=== PATIENT | male | born 1965 | race American Indian/Alaskan Native ===

== ENCOUNTER 2017-04-13 11:51 | Inpatient (IN) | payer MEDICAID, OTHER ==
[2017-04-13] MEDS ORDERED: Sodium Chloride 0.9% 10 ML Syringe FLUSH PRN (12:16)
[2017-04-13] MEDS ORDERED: Sodium Chloride 0.9% 10 ML Syringe FLUSH ONE (12:29)
[2017-04-13] MEDS ORDERED: Iopamidol 612 MG/ML 150 ML Bottle IVPUSH ONE (12:29)
[2017-04-13] MEDS ORDERED: Sodium Chloride 0.9% 1,000 ML IV SCH (12:30)
--- NOTE | 2017-04-13 13:28 | CT ---
CT chest Technique: Multiple axial sections through the chest were obtained. Intravenous contrast was utilized. Comparison: No prior chest CT, previous chest x-ray of 08/17/16. Findings: Increased density is identified within both posterior lung bases, worse on the left side. Findings could certainly represent bibasilar areas of pneumonia. Minimal increased density noted within the upper lungs. Areas of atelectasis are noted within the upper lungs. No pleural effusions are seen. No pericardial thickening is seen. Mediastinum and hilar regions show no adenopathy or mass. No axillary adenopathy is seen. Bone window settings were reviewed which shows mild endplate concavities scattered within the thoracic spine. Previous cervical spine surgery is partially visualized. Impression: 1. Increased density within both lung bases as well as minimal density within the upper lungs. Findings could certainly represent pneumonia. 2. Other findings which are felt to be incidental as described above. Diagnostic code #3 CT abdomen and pelvis Technique: Multiple axial sections were obtained from above the dome of the diaphragm inferiorly through the pubic symphysis. Intravenous contrast was utilized. No oral contrast has been given. Findings: Mild artifact is noted from the patient's arms. Liver shows no discrete abnormality. Gallbladder well-distended most likely representing fasting. Spleen appears without abnormality. Adrenal glands show no nodule. Kidneys show symmetric contrast enhancement without hydronephrosis or mass. Pancreas is within normal limits. Aorta shows no aneurysmal dilatation. No retroperitoneal adenopathy is seen. No mesenteric abnormalities are seen. No pelvic mass or adenopathy is noted. Day catheter is seen within the bladder. Mild increased stool is noted throughout the colon. Appendix is not definitely seen. Bone window settings were reviewed which shows previous surgery around a compression deformity at L1. Impression: 1. Increased stool within the colon. 2. Other incidental findings as noted above. Nothing acute is appreciated within the abdomen or pelvis. Diagnostic code #2
[2017-04-13] MEDS ORDERED: Levofloxacin/Dextrose 5%-Water 750 MG in Premix Bag 1 BAG IV ONE (13:43)
[2017-04-13] MEDS ORDERED: Acetaminophen 325 MG Tab PO ONE (13:52)
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
[2017-04-13] MEDS ORDERED: Acetaminophen 325 MG Tab ONE (14:02)
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
[2017-04-13] MEDS ORDERED: Promethazine 12.5 MG in Sodium Chloride 0.9% 50 ML IV PRN (16:56)
[2017-04-13] MEDS ORDERED: Bisacodyl 10 MG Supp RECTAL PRN (16:56)
[2017-04-13] MEDS ORDERED: Temazepam 15 MG Cap PO PRN (16:56)
[2017-04-13] MEDS ORDERED: LORazepam 2 MG/ML MDV IV PRN (16:56)
[2017-04-13] MEDS ORDERED: Ondansetron 4 MG/2 ML SDV IV PRN (16:56)
[2017-04-13] MEDS ORDERED: HYDROmorphone 0.5 MG/0.5 ML Syringe IVPUSH PRN (16:56)
[2017-04-13] MEDS ORDERED: Metoprolol Tartrate 5 MG/5 ML SDV IVPUSH PRN (16:56)
[2017-04-13] MEDS ORDERED: Magnesium Hydroxide 400 MG/5 ML Susp 30 ML Cup PO PRN ×2 (16:56→17:43)
[2017-04-13] MEDS ORDERED: Polyethylene Glycol 3350 Powder 17 GM Packet PO PRN (16:56)
[2017-04-13] MEDS ORDERED: hydrALAZINE 20 MG/ML SDV IVPUSH PRN (16:56)
[2017-04-13] MEDS ORDERED: Albuterol/Ipratropium 3.0-0.5 MG/3 ML Neb Soln NEB PRN (16:56)
[2017-04-13] MEDS ORDERED: LORazepam 2 MG/ML MDV IVPUSH PRN (16:56)
[2017-04-13] MEDS ORDERED: Docusate Sodium 100 MG Cap PO PRN (16:56)
[2017-04-13] MEDS ORDERED: Acetaminophen 325 MG Tab PO PRN (16:56)
[2017-04-13] MEDS ORDERED: Piperacillin/Tazobactam 4.5 GM in Sodium Chloride 0.9% 100 ML IV ONE (17:15)
[2017-04-13] MEDS ORDERED: Hypromellose 0.5% Ophth Soln 15 ML Bottle EYEBOTH PRN (17:43)
[2017-04-13] MEDS ORDERED: Triamcinolone Acetonide 0.1% Crm 15 GM Tube TOP PRN (17:43)
[2017-04-13] MEDS ORDERED: Diclofenac Sodium 1% Gel 100 GM Tube TOP PRN (17:43)
[2017-04-13] MEDS ORDERED: diphenhydrAMINE 25 MG Cap PO PRN (17:59)
[2017-04-13] MEDS ORDERED: Nitroglycerin 2% Oint 1 GM UD Packet TOP PRN (18:15)
[2017-04-13] MEDS: Lactulose Soln 10 GM/15 ML 30 ML UD Cup PO SCH ×2 (19:21→22:59)
[2017-04-13] MEDS: Saccharomyces Boulardii (Probiotic) 250 MG Cap PO SCH ×2 (19:21→22:26)
[2017-04-13] MEDS: Venlafaxine 75 MG Cap.ER PO SCH (22:25)
[2017-04-13] MEDS: Cholecalciferol (Vitamin D3) 1,000 Unit Tab PO SCH (22:25)
[2017-04-13] MEDS: ClonazePAM 0.5 MG Tab PO SCH (22:25)
[2017-04-13] MEDS: Calcium Polycarbophil 625 MG Tab PO SCH (22:25)
[2017-04-13] MEDS: Ascorbic Acid 500 MG Tab PO SCH (22:25)
[2017-04-13] MEDS: Baclofen 10 MG Tab PO SCH (22:25)
[2017-04-13] MEDS: Sennosides 8.6 MG Tab PO SCH (22:26)
[2017-04-13] MEDS: Primidone 50 MG Tab PO SCH (22:26)
[2017-04-13] MEDS: Calcium Carbonate/Vitamin D3 1500 MG-200 Units Tab PO SCH (22:26)
[2017-04-13] MEDS: Cyclobenzaprine 10 MG Tab PO SCH (22:26)
[2017-04-13] MEDS: Gabapentin 300 MG Cap PO SCH (22:26)
[2017-04-13] MEDS: Acetaminophen/HYDROcodone 325-5 MG Tab PO PRN (22:37)
[2017-04-13] MEDS: Sodium Chloride 0.9% 1,000 ML IV SCH (22:57)
[2017-04-14] MEDS: Lidocaine 2% Jelly 5 ML Tube TOP SCH ×2 (01:10→22:10)
[2017-04-14] MEDS: Piperacillin/Tazobactam 4.5 GM in Sodium Chloride 0.9% 100 ML IV SCH ×3 (01:11→18:50)
[2017-04-14] MEDS: Lactulose Soln 10 GM/15 ML 30 ML UD Cup PO SCH ×3 (05:18→18:50)
[2017-04-14] MEDS: Acetaminophen/HYDROcodone 325-5 MG Tab PO PRN ×3 (05:19→22:06)
[2017-04-14] MEDS: Pantoprazole 40 MG Tab.CR PO SCH (06:09)
[2017-04-14] MEDS ORDERED: fentaNYL 75 MCG/HR Transdermal Patch TRDERM SCH (09:00)
[2017-04-14] MEDS: Sodium Chloride 0.9% 1,000 ML IV SCH ×2 (09:17→17:30)
[2017-04-14] MEDS: Enoxaparin 40 MG/0.4 ML Syringe SUBCUT SCH (09:18)
[2017-04-14] MEDS: Venlafaxine 75 MG Cap.ER PO SCH ×2 (09:20→22:08)
[2017-04-14] MEDS: buPROPion 150 MG Tab.ER PO SCH (09:20)
[2017-04-14] MEDS: Magnesium Oxide 400 MG Tab PO SCH (09:20)
[2017-04-14] MEDS: Baclofen 10 MG Tab PO SCH ×3 (09:20→22:08)
[2017-04-14] MEDS: Calcium Polycarbophil 625 MG Tab PO SCH ×2 (09:20→22:05)
[2017-04-14] MEDS: Ascorbic Acid 500 MG Tab PO SCH ×3 (09:21→22:08)
[2017-04-14] MEDS: Cyclobenzaprine 10 MG Tab PO SCH ×3 (09:21→22:08)
[2017-04-14] MEDS: Sennosides 8.6 MG Tab PO SCH ×2 (09:21→22:05)
[2017-04-14] MEDS: Saccharomyces Boulardii (Probiotic) 250 MG Cap PO SCH ×2 (09:22→22:10)
[2017-04-14] MEDS: Multivitamins,Therapeutic Tab PO SCH (09:22)
[2017-04-14] MEDS: Lidocaine 5% 700 MG Patch TOP SCH (09:22)
[2017-04-14] MEDS: Calcium Carbonate/Vitamin D3 1500 MG-200 Units Tab PO SCH ×2 (09:23→22:05)
[2017-04-14] MEDS: Cholecalciferol (Vitamin D3) 1,000 Unit Tab PO SCH ×2 (09:23→22:08)
[2017-04-14] MEDS: guaiFENesin 600 MG Tab.ER PO SCH ×2 (09:26→22:06)
[2017-04-14] MEDS: Gabapentin 300 MG Cap PO SCH ×3 (09:27→22:08)
[2017-04-14] MEDS: Methenamine Hippurate 1 GM PO SCH ×2 (09:27→22:04)
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
[2017-04-14] MEDS: Levofloxacin/Dextrose 5%-Water 500 MG in Premix Bag 1 BAG IV SCH (12:18)
[2017-04-14] MEDS: Primidone 50 MG Tab PO SCH (22:05)
[2017-04-14] MEDS: ClonazePAM 0.5 MG Tab PO SCH (22:07)
[2017-04-15] MEDS: Sodium Chloride 0.9% 1,000 ML IV SCH ×3 (01:17→21:30)
[2017-04-15] MEDS: Lactulose Soln 10 GM/15 ML 30 ML UD Cup PO SCH ×4 (01:17→17:52)
[2017-04-15] MEDS: Piperacillin/Tazobactam 4.5 GM in Sodium Chloride 0.9% 100 ML IV SCH ×3 (01:17→17:53)
[2017-04-15] MEDS: Acetaminophen/HYDROcodone 325-5 MG Tab PO PRN ×5 (02:26→22:28)
[2017-04-15] MEDS: Pantoprazole 40 MG Tab.CR PO SCH (06:19)
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
[2017-04-15] MEDS: Methenamine Hippurate 1 GM PO SCH ×2 (09:06→21:26)
[2017-04-15] MEDS: Multivitamins,Therapeutic Tab PO SCH (09:15)
[2017-04-15] MEDS: Calcium Polycarbophil 625 MG Tab PO SCH ×2 (09:15→21:21)
[2017-04-15] MEDS: guaiFENesin 600 MG Tab.ER PO SCH ×2 (09:16→21:20)
[2017-04-15] MEDS: Ascorbic Acid 500 MG Tab PO SCH ×3 (09:17→21:21)
[2017-04-15] MEDS: Sennosides 8.6 MG Tab PO SCH ×2 (09:17→21:21)
[2017-04-15] MEDS: Magnesium Oxide 400 MG Tab PO SCH (09:18)
[2017-04-15] MEDS: Calcium Carbonate/Vitamin D3 1500 MG-200 Units Tab PO SCH ×2 (09:18→21:21)
[2017-04-15] MEDS: Cholecalciferol (Vitamin D3) 1,000 Unit Tab PO SCH ×2 (09:18→21:20)
[2017-04-15] MEDS: buPROPion 150 MG Tab.ER PO SCH (09:19)
[2017-04-15] MEDS: Gabapentin 300 MG Cap PO SCH ×3 (09:19→21:21)
[2017-04-15] MEDS: Baclofen 10 MG Tab PO SCH ×3 (09:20→21:21)
[2017-04-15] MEDS: Cyclobenzaprine 10 MG Tab PO SCH ×3 (09:20→21:21)
[2017-04-15] MEDS: Enoxaparin 40 MG/0.4 ML Syringe SUBCUT SCH (09:21)
[2017-04-15] MEDS: Venlafaxine 75 MG Cap.ER PO SCH ×2 (09:21→21:21)
[2017-04-15] MEDS: Saccharomyces Boulardii (Probiotic) 250 MG Cap PO SCH ×2 (09:28→21:20)
[2017-04-15] MEDS: Lidocaine 5% 700 MG Patch TOP SCH (09:39)
--- NOTE | 2017-04-15 10:31 | CR ---
Chest: Frontal view of the chest was obtained. Comparison: Previous CT chest of 04/13/17 and chest x-ray of 08/17/16. Heart size and mediastinum are within normal limits for technique. Areas of increased density noted on chest CT appeared to be improved on current exam. Slight area of atelectasis is noted next to the right minor fissure. Previous cervical spine surgery and right clavicle surgery is noted. Scoliosis is noted within the spine. Impression: 1. Chest x-ray appears improved from prior chest CT. Other incidental findings. Diagnostic code #2
[2017-04-15] MEDS: Levofloxacin/Dextrose 5%-Water 500 MG in Premix Bag 1 BAG IV SCH (14:36)
[2017-04-15] MEDS: ClonazePAM 0.5 MG Tab PO SCH (21:21)
[2017-04-15] MEDS: Primidone 50 MG Tab PO SCH (21:22)
[2017-04-15] MEDS: Lidocaine 2% Jelly 5 ML Tube TOP SCH (21:25)
[2017-04-16] MEDS: Piperacillin/Tazobactam 4.5 GM in Sodium Chloride 0.9% 100 ML IV SCH ×2 (01:31→09:56)
[2017-04-16] MEDS: Lactulose Soln 10 GM/15 ML 30 ML UD Cup PO SCH ×3 (01:31→11:00)
[2017-04-16] MEDS: Acetaminophen/HYDROcodone 325-5 MG Tab PO PRN ×4 (02:46→15:20)
[2017-04-16] MEDS: Pantoprazole 40 MG Tab.CR PO SCH (06:27)
[2017-04-16] MEDS: Sodium Chloride 0.9% 1,000 ML IV SCH (06:54)
[2017-04-16] MEDS: Saccharomyces Boulardii (Probiotic) 250 MG Cap PO SCH (08:58)
[2017-04-16] MEDS: Cyclobenzaprine 10 MG Tab PO SCH ×2 (08:58→15:20)
[2017-04-16] MEDS: Cholecalciferol (Vitamin D3) 1,000 Unit Tab PO SCH (08:58)
[2017-04-16] MEDS: Ascorbic Acid 500 MG Tab PO SCH ×2 (08:58→15:19)
[2017-04-16] MEDS: Sennosides 8.6 MG Tab PO SCH (08:59)
[2017-04-16] MEDS: buPROPion 150 MG Tab.ER PO SCH (08:59)
[2017-04-16] MEDS: guaiFENesin 600 MG Tab.ER PO SCH (08:59)
[2017-04-16] MEDS: Gabapentin 300 MG Cap PO SCH ×2 (08:59→15:20)
[2017-04-16] MEDS: Multivitamins,Therapeutic Tab PO SCH (08:59)
[2017-04-16] MEDS: Baclofen 10 MG Tab PO SCH ×2 (08:59→15:20)
[2017-04-16] MEDS: Calcium Carbonate/Vitamin D3 1500 MG-200 Units Tab PO SCH (09:00)
[2017-04-16] MEDS: Enoxaparin 40 MG/0.4 ML Syringe SUBCUT SCH (09:00)
[2017-04-16] MEDS: Venlafaxine 75 MG Cap.ER PO SCH (09:00)
[2017-04-16] MEDS: Calcium Polycarbophil 625 MG Tab PO SCH (09:00)
[2017-04-16] MEDS: Magnesium Oxide 400 MG Tab PO SCH (09:00)
[2017-04-16] MEDS: Lidocaine 5% 700 MG Patch TOP SCH (09:20)
[2017-04-16] MEDS: Methenamine Hippurate 1 GM PO SCH (10:06)
[2017-04-16 12:11] VITALS: BP 130/89
[2017-04-16] MEDS: Levofloxacin/Dextrose 5%-Water 500 MG in Premix Bag 1 BAG IV SCH (12:53)
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
== END 2017-04-16 15:35 | DRG 871 ==
LOC: JD.ED 11:51 → JD.MS 14:27
PROVIDERS: ADMIT Internal Medicine Cardiovascular Disease; ATTEND Internal Medicine
DX: A41.9 Sepsis, unspecified organism (principal); J18.9 Pneumonia, unspecified organism; N39.0 Urinary tract infection, site not specified; J15.7 Pneumonia due to Mycoplasma pneumoniae; G82.20 Paraplegia, unspecified; T83.511A Infection and inflammatory reaction due to indwelling urethral catheter, initial encounter; N31.9 Neuromuscular dysfunction of bladder, unspecified; N39.498 Other specified urinary incontinence; Z93.6 Other artificial openings of urinary tract status; K59.00 Constipation, unspecified; I25.10 Atherosclerotic heart disease of native coronary artery without angina pectoris; Z86.14 Personal history of Methicillin resistant Staphylococcus aureus infection; Z87.891 Personal history of nicotine dependence; Z87.01 Personal history of pneumonia (recurrent); T14.8 Other injury of unspecified body region; V89.2XXS Person injured in unspecified motor-vehicle accident, traffic, sequela; F32.9 Major depressive disorder, single episode, unspecified; G47.00 Insomnia, unspecified; E66.9 Obesity, unspecified; Z68.36 Body mass index [BMI] 36.0-36.9, adult; G89.29 Other chronic pain; Z79.899 Other long term (current) drug therapy
CPT/HCPCS: 36415; 51702; 71260; 74177; 80053; 81001; 83605; 85025; 86140; 87040 ×2; 87086; 87088 ×3; 87186 ×4; 96361; 96365; 99285; A9270; J1956; J7040; J7050 ×2; Q9967; 71010; 71010-26; 80048; 83036; 83735; 84439; 84443; 86738; 87641; 87899; 94761; 96367; 97110-GO; 97140-GP; 97162-GP; 97167-GO; J1650; J2405; J2543; J7030

== ENCOUNTER 2017-04-27 11:37 | Inpatient (IN) | payer MEDICAID ==
[2017-04-27] MEDS ORDERED: Sodium Chloride 0.9% 10 ML Syringe FLUSH PRN (12:05)
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
[2017-04-27] MEDS: Sodium Chloride 0.9% 1,000 ML IV SCH (13:18)
[2017-04-27] MEDS ORDERED: Levofloxacin/Dextrose 5%-Water 750 MG in Premix Bag 1 BAG IV ONE (13:47)
[2017-04-27] MEDS ORDERED: Ibuprofen 600 MG Tab PO PRN (15:14)
[2017-04-27] MEDS ORDERED: Ondansetron 4 MG/2 ML SDV IV PRN (15:14)
[2017-04-27] MEDS ORDERED: LORazepam 2 MG/ML MDV IV PRN (15:14)
[2017-04-27] MEDS ORDERED: Ondansetron 4 MG Tab.DIS PO PRN (15:14)
--- NOTE | 2017-04-27 15:21 | CR ---
Abdomen: Supine view of the abdomen was obtained. Comparison: No prior abdominal x-ray. Previous surgery is noted at the thoracolumbar junction. Scattered bowel gas is seen which is felt to be within normal limits. Surgical clips are seen within the left upper abdomen. Phleboliths are noted within the pelvis. Impression: 1. Incidental findings. Diagnostic code #2
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
[2017-04-27] MEDS ORDERED: Albuterol 0.083% 2.5 MG/3 ML Neb Soln NEB PRN (16:03)
[2017-04-27] MEDS ORDERED: Acetaminophen 325 MG Tab PO PRN (16:05)
[2017-04-27] MEDS ORDERED: Magnesium Citrate Solution 296 ML Bottle PO ONE (16:08)
[2017-04-27] MEDS ORDERED: Budesonide 0.5 MG/2 ML Neb Susp NEB SCH (16:15)
[2017-04-27] MEDS: Albuterol/Ipratropium 3.0-0.5 MG/3 ML Neb Soln NEB SCH ×2 (17:11→20:13)
[2017-04-27] MEDS: Enoxaparin 40 MG/0.4 ML Syringe SUBCUT SCH (17:30)
[2017-04-27] MEDS: Metoclopramide 10 MG/2 ML SDV IVPUSH SCH (17:30)
[2017-04-27] MEDS: Nicotine 7 MG/24 Hr Patch TRDERM SCH (17:30)
[2017-04-27] MEDS: Meropenem 500 MG in Sodium Chloride 0.9% 100 ML IV SCH (17:31)
[2017-04-27] MEDS ORDERED: fentaNYL 25 MCG/HR Transdermal Patch TRDERM SCH (18:00)
[2017-04-27] MEDS ORDERED: Hypromellose 0.5% Ophth Soln 15 ML Bottle EYEBOTH PRN (18:00)
[2017-04-27] MEDS ORDERED: Lactoperoxi/Gluc Oxid/Pot Thio 42 GM Tube MUCMEM PRN (18:00)
[2017-04-27] MEDS ORDERED: Magnesium Hydroxide 400 MG/5 ML Susp 30 ML Cup PO PRN (18:00)
[2017-04-27] MEDS ORDERED: Diclofenac Sodium 1% Gel 100 GM Tube TOP PRN (18:00)
[2017-04-27] MEDS: Budesonide 0.5 MG/2 ML Neb Susp NEB SCH (20:12)
[2017-04-27] MEDS ORDERED: Saccharomyces Boulardii (Probiotic) 250 MG Cap PO SCH (21:00)
[2017-04-27] MEDS ORDERED: Non-Formulary Medication 1 Each (Gabapentin 400 MG) PO SCH (21:00)
[2017-04-27] MEDS: Saccharomyces Boulardii (Probiotic) 250 MG Cap PO SCH (21:50)
[2017-04-27] MEDS: Calcium Carbonate/Vitamin D3 1500 MG-200 Units Tab PO SCH (21:50)
[2017-04-27] MEDS: Cyclobenzaprine 10 MG Tab PO SCH (21:50)
[2017-04-27] MEDS: Polyethylene Glycol 3350 Powder 17 GM Packet PO SCH (21:51)
[2017-04-27] MEDS: Primidone 50 MG Tab PO SCH (21:51)
[2017-04-27] MEDS: guaiFENesin 600 MG Tab.ER PO SCH (21:51)
[2017-04-27] MEDS: Gabapentin 300 MG Cap PO SCH (21:52)
[2017-04-28] MEDS: Metoclopramide 10 MG/2 ML SDV IVPUSH SCH ×4 (00:33→23:27)
[2017-04-28] MEDS: Meropenem 500 MG in Sodium Chloride 0.9% 100 ML IV SCH ×4 (00:33→17:11)
[2017-04-28] MEDS: Sodium Chloride 0.9% 1,000 ML IV SCH ×3 (00:34→18:19)
[2017-04-28] MEDS ORDERED: Aluminum Hydroxide/Magnesium Hydroxide/Simethicone Susp 30 ML Cup PO PRN (00:54)
[2017-04-28] MEDS: Acetaminophen/oxyCODONE 325-5 MG Tab PO PRN ×5 (01:09→21:13)
[2017-04-28] MEDS: Albuterol/Ipratropium 3.0-0.5 MG/3 ML Neb Soln NEB SCH ×4 (02:16→20:21)
[2017-04-28] MEDS ORDERED: fentaNYL 50 MCG/HR Transdermal Patch TRDERM SCH (07:00)
[2017-04-28] MEDS ORDERED: Diclofenac Sodium 1% Gel 100 GM Tube TOP PRN (07:08)
--- NOTE | 2017-04-28 07:12 | PCM.PN ---
- General Info Date of Service: 04/28/17 Admission Dx/Problem (Free Text): Admission Diagnosis/Problem Admission Diagnosis/Problem Pneumonia Jonathan is seen this morning. Has just finished breakfast, is sitting upright in bed. States that overall he is feeling much better. He did have low grade temps of 99.0 overnight. He is coughing, with increased strength with his cough noted. He still notes occasional SOB sensations, usually after coughing which resolves shortly after- much improved from yesterday. He has not had BM yet and still feels "full". Appetite is returning. He is getting nebs, feels they are very helpful. Functional Status: Reports: Pain Controlled, Tolerating Diet, Urinating ( chronic indwelling cath), Incentive Spirometry. Denies: Ambulating ( quadraplegia), New Symptoms - Review of Systems General: Reports: Fever, Weakness (generalized--improved ) HEENT: Reports: No Symptoms Pulmonary: Reports: Shortness of Breath (mild), Cough (mild/weak cough) Cardiovascular: Reports: No Symptoms Gastrointestinal: Reports: Constipation. Denies: Abdominal Pain, Decreased Appetite, Diarrhea, Nausea, Vomiting Genitourinary: Reports: Other (stokes cath) Musculoskeletal: Reports: Other (quadraplegia) Neurological: Reports: Other (quadraplegia). Denies: Headache - Patient Data Vitals - Most Recent: Last Vital Signs Temp 99.0 F 04/28/17 03:46 Pulse 74 04/28/17 03:46 Resp 16 04/28/17 03:46 BP 107/64 04/28/17 03:46 Pulse Ox 91 L 04/28/17 03:46 Weight - Most Recent: 263 lb 4.8 oz I&O - Last 24 Hours: Intake & Output 04/27/17 04/28/17 04/28/17 22:59 06:59 14:59 Intake Total 700 Output Total 1100 Balance -400 Lab Results Last 24 Hours: Laboratory Results - last 24 hr 04/28/17 04/28/17 Range/Units 03:45 04:21 WBC 7.29 (4.23-9.07) K/mm3 RBC 4.24 L (4.63-6.08) M/mm3 Hgb 11.8 L (13.7-17.5) gm/L Hct 36.5 L (40.1-51.0) % MCV 86.1 (79.0-92.2) fl MCH 27.8 (25.7-32.2) pg MCHC 32.3 (32.2-35.5) g/dl RDW Std Deviation 46.7 H (35.1-43.9) fL Plt Count 263 (163-337) K/mm3 MPV 10.4 (9.4-12.3) fl Neut % (Auto) 68.1 H (34.0-67.9) % Lymph % (Auto) 20.0 L (21.8-53.1) % [place] % (Auto) 9.1 (5.3-12.2) % Eos % (Auto) 2.3 (0.8-7.0) Baso % (Auto) 0.4 (0.1-1.2) % Neut # (Auto) 4.96 (1.78-5.38) K/mm3 Lymph # (Auto) 1.46 (1.32-3.57) K/mm3 [place] # (Auto) 0.66 (0.30-0.82) K/mm3 Eos # (Auto) 0.17 (0.04-0.54) K/mm3 Baso # (Auto) 0.03 (0.01-0.08) K/mm3 Sodium 140 (136-145) mEq/L Potassium 4.0 (3.5-5.1) mEq/L Chloride 102 (98-107) mEq/L Carbon Dioxide 33 H (21-32) mEq/L Anion Gap 9.0 (5-15) BUN 9 (7-18) mg/dL Creatinine 0.6 L (0.7-1.3) mg/dL Est Cr Clr Drug Dosing 169.35 mL/min Estimated GFR (MDRD) > 60 (>60) mL/min BUN/Creatinine Ratio 15.0 (14-18) Glucose 102 (74-106) mg/dL Calcium 8.8 (8.5-10.1) mg/dL Magnesium 1.8 (1.8-2.4) mg/dl C-Reactive Protein 7.2 H* (<1.0) mg/dL Med Orders - Current: Current Medications Acetaminophen (Tylenol) 650 mg PO Q6H PRN PRN Reason: Pain/Fever Al Hydroxide/Mg Hydroxide (Mag-Al Plus) 30 ml PO Q4H PRN PRN Reason: Heartburn Last Admin: 04/28/17 01:09 Dose: 30 ml Albuterol (Proventil Neb Soln) 2.5 mg NEB Q2H PRN PRN Reason: SOB/wheezing Albuterol/Ipratropium (Duoneb 3.0-0.5 Mg/3 Ml) 3 ml NEB Q6HRRT [facility] Last Admin: 04/28/17 02:16 Dose: 3 ml Artificial Tears (Isopto Tears 0.5% Ophth Soln) 0 ml EYEBOTH QID PRN PRN Reason: Dry Eyes Budesonide (Pulmicort) 0.5 mg NEB BID [facility] Last Admin: 04/27/17 20:12 Dose: 0.5 mg Bupropion HCl (Wellbutrin Xl) 150 mg PO DAILY [facility] Calcium Carbonate (Calcium Carbonate/Vitamin D 1500 Mg-200 Unit) 1 tab PO BID [facility] Last Admin: 04/27/17 21:50 Dose: 1 tab Cyclobenzaprine HCl (Flexeril) 10 mg PO TID [facility] Last Admin: 04/27/17 21:50 Dose: 10 mg Diclofenac Sodium (Voltaren 1% Gel) 100 gm TOP TID PRN PRN Reason: Pain Enoxaparin Sodium (Lovenox) 40 mg SUBCUT DAILY [facility] Last Admin: 04/27/17 17:30 Dose: 40 mg Fentanyl (Duragesic) 50 mcg TRDERM Q72H [facility] Gabapentin (Neurontin) 300 mg PO TID [facility] Last Admin: 04/27/17 21:52 Dose: 300 mg Guaifenesin (Mucinex) 1,200 mg PO BID [facility] Last Admin: 04/27/17 21:51 Dose: 1,200 mg Hydromorphone HCl (Dilaudid) 0.5 mg IVPUSH Q2H PRN PRN Reason: Pain (severe 7-10) Sodium Chloride (Normal Saline) 1,000 mls @ 125 mls/hr IV ASDIRECTED [facility] Last Admin: 04/28/17 00:34 Dose: 125 mls/hr Meropenem 500 mg/ Sodium (Chloride) 100 mls @ 200 mls/hr IV Q6H [facility] Last Admin: 04/28/17 05:42 Dose: 200 mls/hr Ibuprofen (Motrin) 600 mg PO Q6H PRN PRN Reason: Pain (moderate 4-6) Lorazepam (Ativan) 1 mg IV Q6H PRN PRN Reason: Nausea/Vomiting Magnesium Hydroxide (Milk Of Magnesia) 30 ml PO DAILY PRN PRN Reason: Constipation Magnesium Sulfate (Pharmacy To Dose - Magnesium Replacement) 1 dose .XX ASDIRECTED [facility] Metoclopramide HCl (Reglan) 10 mg IVPUSH Q8H [facility] Last Admin: 04/28/17 00:33 Dose: 10 mg Miscellaneous Information (Remove Patch) 1 ea TRDERM Q72H [facility] Multivitamins/Minerals (Cerovite Advanced Formula Tablet) 1 tab PO DAILY [facility] Nicotine (Habitrol) 7 mg TRDERM DAILY [facility] Last Admin: 04/27/17 17:30 Dose: 7 mg Saliva Substitute (Combo No.3 [Aquoral]) 1 spray BUCCAL QID PRN PRN Reason: Dryness Ondansetron HCl (Zofran Odt) 4 mg PO Q4H PRN PRN Reason: nausea, able to take PO Ondansetron HCl (Zofran) 4 mg IV Q4H PRN PRN Reason: Nausea/Vomiting Last Admin: 04/27/17 22:00 Dose: 4 mg Oxycodone/Acetaminophen (Percocet 325-5 Mg) 1 tab PO Q4H PRN PRN Reason: Pain (moderate 4-6) Last Admin: 04/28/17 01:09 Dose: 1 tab Pantoprazole Sodium (Protonix) 40 mg PO DAILY [facility] Polyethylene Glycol (Miralax) 17 gm PO BID [facility] Last Admin: 04/27/17 21:51 Dose: 17 gm Potassium Chloride (Pharmacy To Dose - Potassium Replacement) 1 dose .XX ASDIRECTED [facility] Primidone (Mysoline) 25 mg PO BEDTIME [facility] Last Admin: 04/27/17 21:51 Dose: 25 mg Saccharomyces Boulardii (Florastor) 250 mg PO BID [facility] Last Admin: 04/27/17 21:50 Dose: 250 mg Senna/Docusate Sodium (Senna Plus) 2 tab PO BID [facility] Last Admin: 04/27/17 21:58 Dose: 2 tab Sodium Chloride (Saline Flush) 10 ml FLUSH ASDIRECTED PRN PRN Reason: Keep Vein Open Last Admin: 04/27/17 13:18 Dose: 10 ml Venlafaxine HCl (Effexor Xr) 75 mg PO BID [facility] Discontinued Medications Budesonide (Pulmicort) 0.5 mg NEB BIDRT [facility] Fentanyl (Duragesic) 75 mcg TRDERM Q72H [facility] Last Admin: 04/27/17 18:34 Dose: Not Given Levofloxacin/Dextrose 750 mg/ (Premix) 150 mls @ 100 mls/hr IV ONETIME ONE Stop: 04/27/17 15:16 Last Admin: 04/27/17 14:09 Dose: 100 mls/hr Meropenem 500 mg/ Sodium (Chloride) 100 mls @ 200 mls/hr IV Q6H [facility] Magnesium Citrate (Citrate Of Magnesia) 296 ml PO ONETIME ONE Stop: 04/27/17 16:09 Last Admin: 04/27/17 17:30 Dose: 296 ml Non-Formulary Medication (Gabapentin) 400 mg PO TID [facility] Pantoprazole Sodium (Protonix) 40 mg PO DAILY [facility] Saccharomyces Boulardii (Florastor) 250 mg PO BID [facility] - Exam Quality Assessment: Supplemental Oxygen, DVT Prophylaxis General: Alert, Oriented, No Acute Distress, Other (appears much more alert and awake, comfortable today than yesterday) HEENT: Pupils Equal, EOMI, Mucous Membr. Moist/[place] Neck: Supple, No JVD Lungs: Normal Respiratory Effort, Decreased Breath Sounds (mid to lower lobes) Cardiovascular: Regular Rate, Regular Rhythm GI/Abdominal Exam: No: Guarding, Rigid, Rebound (Male) Exam: Deferred Extremities: No Pedal Edema, Normal Capillary Refill, Other (mild contractures of hands bilat but functional - able to feed himself) Peripheral Pulses: 2+: Radial (L), Radial (R), Dorsalis Pedis (L), Dorsalis Pedis (R) Skin: Warm, Dry Neurological: Other (quadraplegic; some use of upper extremities) Psy/Mental Status: Alert, Normal Affect, Normal Mood, Other (affect is less flat today; ;more talkative and interactive today) - Problem List & Annotations (1) Pneumonia involving right lung SNOMED Code(s): 494374075 Code(s): J18.9 - PNEUMONIA, UNSPECIFIED ORGANISM Status: Acute Priority: High Current Visit: Yes Qualifiers: Pneumonia type: due to unspecified organism Lung location: lower lobe of lung Qualified Code(s): J18.1 - Lobar pneumonia, unspecified organism (2) Leukocytosis SNOMED Code(s): 388296818, 729631290 Code(s): D72.829 - ELEVATED WHITE BLOOD CELL COUNT, UNSPECIFIED Status: Acute Priority: High Current Visit: Yes (3) Fever SNOMED Code(s): 750754565 Code(s): R50.9 - FEVER, UNSPECIFIED Status: Acute Priority: High Current Visit: Yes (4) Neurogenic bladder SNOMED Code(s): 192658270 Code(s): N31.9 - NEUROMUSCULAR DYSFUNCTION OF BLADDER, UNSPECIFIED Status: Chronic Priority: Medium Current Visit: Yes (5) Chronic constipation SNOMED Code(s): 776387347 Code(s): K59.09 - OTHER CONSTIPATION Status: Chronic Priority: High Current Visit: Yes (6) Chronic incomplete quadriplegia SNOMED Code(s): 71072210, 747149465 Code(s): G82.50 - QUADRIPLEGIA, UNSPECIFIED Status: Chronic Priority: Medium Current Visit: Yes - Problem List Review Problem List Initiated/Reviewed/Updated: Yes - My Orders Last 24 Hours: My Active Orders 04/27/17 16:01 RT Chest Physiotherapy [RC] Q2HWA RT Incentive Spirometry [RC] Q2HWA Turn, Cough, Deep Breathe [RC] Q2HWA RT Acapella [RESPCARE] Routine 04/27/17 16:02 RT Aerosol Therapy [RC] ASDIRECTED 04/27/17 16:03 Albuterol [Proventil Neb Soln] 2.5 mg NEB Q2H PRN 04/27/17 16:05 Acetaminophen [Tylenol] 650 mg PO Q6H PRN 04/27/17 16:15 Albuterol/Ipratropium [DuoNeb 3.0-0.5 MG/3 ML] 3 ml NEB Q6HRRT Magnesium Rep Pharmacy to Dose [Pharmacy to Dose - Magnesium Replacement] 1 dose .XX ASDIRECTED Metoclopramide [Reglan] 10 mg IVPUSH Q8H Potassium Rep Pharmacy to Dose [Pharmacy to Dose - Potassium Replacement] 1 dose .XX ASDIRECTED 04/27/17 21:00 Budesonide [Pulmicort] 0.5 mg NEB BID Docusate Sodium/Sennosides [Senna Plus] 2 tab PO BID Polyethylene Glycol 3350 [MiraLAX] 17 gm PO BID Saccharomyces Boulardii [Florastor] 250 mg PO BID guaiFENesin [Mucinex] 1,200 mg PO BID 04/28/17 09:00 Pantoprazole [ProTONIX] 40 mg PO DAILY Venlafaxine [Effexor XR] 75 mg PO BID - Plan Plan:: I/P: Recurrent RLL Pnumonia -Risk factors- recent hospitalization for PNA, Quadraplegia/immobility, Resides in Shelter -Merrem IV- florastor -Was recently treated with Levaquin and Zosyn, Augmentin on DC; rec'd 1 dose of Levaquin in ED prior to this admission -IVF -RT for aggressive pulmonary toilet--Question patient's compliance and motivation with IS/FV/C&DB post discharge with last bout of PNA--needs strong education re: pulmonary toilet with regards to quadraplegia and high risk for recurrent PNA -Duonebs QID, pulmicort, FV, IS, percussion -Mucinex -Supplemental oxygen to keep sats >90% -Up to chair TID per nursing -Repeat CXR in 48 hrs -Follow am labs Leukocytosis/fever- 2/2 above--improved this am -Follow am labs -Tylenol PRN for fevers Chronic constipation -Can improve bowel regimen -See orders -2/2 quadraplegia Neurogenic bladder -Stokes cath - cont with good cath cares -UC to assure no recurrent UTI -2/2 quadraplegia Quadraplegia -with spasticity- he is on lots of anticholinergics and narcotics for spasm which is likely contributing to constipation and chronically dry mouth. Will attempt to trim down regimen and see how patient tolerates. -Up to chair TID with nursing if safe Other: DVT/GI prophylax CM/SW for assist with DC planning- likely plan for DC back to [place] when ready /medically stable. See other orders Patient much improved today; looks and feels better; labs improving. Continue with current POC. Plan DC in 2-3 days if continues to do well. At last admission patient was septic; do not suspect sepsis with this admission. He is stable on admission. Patient is Full Code status
--- NOTE | 2017-04-28 07:16 | CR ---
Chest: Frontal view of the chest was obtained. Comparison: Previous chest x-ray of 04/15/17. Heart size has a slight left ventricular configuration. Scarring is noted behind the left side of the heart. Lungs otherwise are clear. Plate and screws are noted within the right clavicle. Several old healed right upper rib fractures are seen. Scoliosis is noted within the spine. Impression: 1. Incidental findings. Nothing acute is appreciated on frontal chest x-ray. Diagnostic code #2
[2017-04-28] MEDS ORDERED: Meropenem 500 MG in Sodium Chloride 0.9% 100 ML IV SCH (08:00)
[2017-04-28] MEDS: Budesonide 0.5 MG/2 ML Neb Susp NEB SCH ×2 (08:21→20:21)
[2017-04-28] MEDS ORDERED: Magnesium Sulfate/Water 2 GM in Premix Bag 1 BAG IV ONE (09:00)
[2017-04-28] MEDS ORDERED: Multivitamin/Iron/Folic Acid Tab PO SCH ×2 (09:00→10:30)
[2017-04-28] MEDS ORDERED: Pantoprazole 40 MG Tab.CR PO SCH (09:00)
[2017-04-28] MEDS: Calcium Carbonate/Vitamin D3 1500 MG-200 Units Tab PO SCH ×2 (09:50→20:37)
[2017-04-28] MEDS: Cyclobenzaprine 10 MG Tab PO SCH ×3 (09:51→20:37)
[2017-04-28] MEDS: guaiFENesin 600 MG Tab.ER PO SCH ×2 (09:51→20:35)
[2017-04-28] MEDS: Polyethylene Glycol 3350 Powder 17 GM Packet PO SCH ×2 (09:51→20:34)
[2017-04-28] MEDS: Pantoprazole 40 MG Tab.CR PO SCH (09:51)
[2017-04-28] MEDS: buPROPion 150 MG Tab.ER PO SCH (09:51)
[2017-04-28] MEDS: Venlafaxine 75 MG Cap.ER PO SCH ×2 (09:51→20:38)
[2017-04-28] MEDS: Gabapentin 300 MG Cap PO SCH ×3 (09:51→20:36)
[2017-04-28] MEDS: Saccharomyces Boulardii (Probiotic) 250 MG Cap PO SCH ×2 (09:51→20:34)
[2017-04-28] MEDS: Enoxaparin 40 MG/0.4 ML Syringe SUBCUT SCH (09:51)
[2017-04-28] MEDS: Nicotine 7 MG/24 Hr Patch TRDERM SCH (09:52)
[2017-04-28] MEDS: Multivitamins,Therapeutic Tab PO SCH (12:08)
[2017-04-28] MEDS: HYDROmorphone 0.5 MG/0.5 ML Syringe IVPUSH PRN ×2 (19:31→23:27)
[2017-04-28] MEDS: Primidone 50 MG Tab PO SCH (20:37)
[2017-04-29] MEDS: Meropenem 500 MG in Sodium Chloride 0.9% 100 ML IV SCH ×4 (00:01→17:57)
[2017-04-29] MEDS: Albuterol/Ipratropium 3.0-0.5 MG/3 ML Neb Soln NEB SCH ×4 (02:14→21:07)
[2017-04-29] MEDS: Sodium Chloride 0.9% 1,000 ML IV SCH (02:36)
[2017-04-29] MEDS: Diazepam 2 MG Tab PO PRN (05:37)
[2017-04-29] MEDS: Acetaminophen/oxyCODONE 325-5 MG Tab PO PRN ×3 (05:37→20:59)
--- NOTE | 2017-04-29 07:27 | PCM.PN ---
- General Info Date of Service: 04/29/17 Admission Dx/Problem (Free Text): Admission Diagnosis/Problem Admission Diagnosis/Problem Pneumonia Jonathan is seen this morning. Nursing is with him finishing am cares. He rec'd fleets enema this am (no BM since ). Overall he is feeling much better other than "full" due to constipation. Breathing is easier, cough is stronger and somewhat productive with brownish thick sputum production. He has been afebrile. RT continues with resp cares/tx. He is weaned from supplemental oxygen now. PT/OT continue to work with him as well. He has been more spastic overnight, did receive valium as nursing called Dr. Saab who gave verbal orders for valium- patient states this was helpful and he was able to rest/sleep after that. Sisters and mother where to see him yesterday. Kids will be here to see him today; he has 6 children, 2 in [place], others in [place], ages 21-10years. - Review of Systems General: Reports: Weakness (improving). Denies: Fever HEENT: Reports: No Symptoms. Denies: Headaches Pulmonary: Reports: Cough (improving; cough is stronger). Denies: Wheezing Cardiovascular: Reports: No Symptoms. Denies: Chest Pain Gastrointestinal: Reports: Constipation (no BM since - fleets enema to be given this morning), Other (feels full/bloated). Denies: Diarrhea, Nausea, Vomiting Genitourinary: Reports: Other (stokes cath). Denies: No Symptoms Musculoskeletal: Reports: Other (quadraplegia) Neurological: Reports: Other (quadraplegia). Denies: Confusion, Headache Psychiatric: Reports: Depression (stable) - Patient Data Vitals - Most Recent: Last Vital Signs Temp 98.4 F 04/29/17 05:51 Pulse 64 04/29/17 05:51 Resp 18 04/29/17 05:51 BP 128/92 H 04/29/17 05:51 Pulse Ox 95 04/29/17 05:51 Weight - Most Recent: 264 lb 9 oz I&O - Last 24 Hours: Intake & Output 04/28/17 04/29/17 04/29/17 22:59 06:59 14:59 Intake Total 3095 2185 Output Total 3200 2800 Balance -105 -615 Lab Results Last 24 Hours: Laboratory Results - last 24 hr 04/29/17 Range/Units 05:50 WBC 5.38 (4.23-9.07) K/mm3 RBC 4.92 (4.63-6.08) M/mm3 Hgb 13.7 (13.7-17.5) gm/L Hct 42.3 (40.1-51.0) % MCV 86.0 (79.0-92.2) fl MCH 27.8 (25.7-32.2) pg MCHC 32.4 (32.2-35.5) g/dl RDW Std Deviation 47.7 H (35.1-43.9) fL Plt Count 183 (163-337) K/mm3 MPV 11.1 (9.4-12.3) fl Neut % (Auto) 65.2 (34.0-67.9) % Lymph % (Auto) 19.1 L (21.8-53.1) % [place] % (Auto) 8.6 (5.3-12.2) % Eos % (Auto) 5.9 (0.8-7.0) Baso % (Auto) 0.6 (0.1-1.2) % Neut # (Auto) 3.51 (1.78-5.38) K/mm3 Lymph # (Auto) 1.03 L (1.32-3.57) K/mm3 [place] # (Auto) 0.46 (0.30-0.82) K/mm3 Eos # (Auto) 0.32 (0.04-0.54) K/mm3 Baso # (Auto) 0.03 (0.01-0.08) K/mm3 Med Orders - Current: Current Medications Acetaminophen (Tylenol) 650 mg PO Q6H PRN PRN Reason: Pain/Fever Al Hydroxide/Mg Hydroxide (Mag-Al Plus) 30 ml PO Q4H PRN PRN Reason: Heartburn Last Admin: 04/28/17 01:09 Dose: 30 ml Albuterol (Proventil Neb Soln) 2.5 mg NEB Q2H PRN PRN Reason: SOB/wheezing Albuterol/Ipratropium (Duoneb 3.0-0.5 Mg/3 Ml) 3 ml NEB Q6HRRT JAIRO Last Admin: 04/29/17 02:14 Dose: 3 ml Artificial Tears (Isopto Tears 0.5% Ophth Soln) 0 ml EYEBOTH QID PRN PRN Reason: Dry Eyes Budesonide (Pulmicort) 0.5 mg NEB BID [facility] Last Admin: 04/28/17 20:21 Dose: 0.5 mg Bupropion HCl (Wellbutrin Xl) 150 mg PO DAILY [facility] Last Admin: 04/28/17 09:51 Dose: 150 mg Calcium Carbonate (Calcium Carbonate/Vitamin D 1500 Mg-200 Unit) 1 tab PO BID [facility] Last Admin: 04/28/17 20:37 Dose: 1 tab Clonazepam (Klonopin) 0.5 mg PO BEDTIME [facility] Cyclobenzaprine HCl (Flexeril) 10 mg PO TID [facility] Last Admin: 04/28/17 20:37 Dose: 10 mg Diazepam (Valium) 2 mg PO QID PRN PRN Reason: Muscle Spasm Last Admin: 04/29/17 05:37 Dose: 2 mg Diclofenac Sodium (Voltaren 1% Gel) 0 gm TOP TID PRN PRN Reason: Pain Enoxaparin Sodium (Lovenox) 40 mg SUBCUT DAILY [facility] Last Admin: 04/28/17 09:51 Dose: 40 mg Fentanyl (Duragesic) 75 mcg TRDERM Q72H [facility] Gabapentin (Neurontin) 300 mg PO TID [facility] Last Admin: 04/28/17 20:36 Dose: 300 mg Glucose Oxid/Lactoperoxid/Muramidas (Biotene Oralbalance Gel) 0 gm MUCMEM QID PRN PRN Reason: Dryness Guaifenesin (Mucinex) 1,200 mg PO BID [facility] Last Admin: 04/28/17 20:35 Dose: 1,200 mg Hydromorphone HCl (Dilaudid) 0.5 mg IVPUSH Q2H PRN PRN Reason: Pain (severe 7-10) Last Admin: 04/28/17 23:27 Dose: 0.5 mg Meropenem 500 mg/ Sodium (Chloride) 100 mls @ 200 mls/hr IV Q6H [facility] Last Admin: 04/29/17 05:38 Dose: 100 mls/hr Ibuprofen (Motrin) 600 mg PO Q6H PRN PRN Reason: Pain (moderate 4-6) Last Admin: 09/27/17 20:36 Dose: 600 mg Lactulose (Cephulac) 20 gm PO BID [facility] Lorazepam (Ativan) 1 mg IV Q6H PRN PRN Reason: Nausea/Vomiting Magnesium Hydroxide (Milk Of Magnesia) 30 ml PO DAILY PRN PRN Reason: Constipation Magnesium Sulfate (Pharmacy To Dose - Magnesium Replacement) 0 dose .XX ASDIRECTED PRN PRN Reason: RX TO WATCH MAG LEVELS Miscellaneous Information (Remove Patch) 0 ea TRDERM Q72H [facility] Multivitamins (Thera) 1 each PO DAILY [facility] Last Admin: 04/28/17 12:08 Dose: 1 each Nicotine (Habitrol) 7 mg TRDERM DAILY [facility] Last Admin: 04/28/17 09:52 Dose: 7 mg Ondansetron HCl (Zofran Odt) 4 mg PO Q4H PRN PRN Reason: nausea, able to take PO Ondansetron HCl (Zofran) 4 mg IV Q4H PRN PRN Reason: Nausea/Vomiting Last Admin: 04/27/17 22:00 Dose: 4 mg Oxycodone/Acetaminophen (Percocet 325-5 Mg) 1 tab PO Q4H PRN PRN Reason: Pain (moderate 4-6) Last Admin: 04/29/17 05:37 Dose: 1 tab Pantoprazole Sodium (Protonix) 40 mg PO DAILY [facility] Last Admin: 04/28/17 09:51 Dose: 40 mg Polyethylene Glycol (Miralax) 17 gm PO BID [facility] Last Admin: 04/28/17 20:34 Dose: 17 gm Potassium Chloride (Pharmacy To Dose - Potassium Replacement) 0 dose .XX ASDIRECTED PRN PRN Reason: RX TO WATCH K LEVELS Primidone (Mysoline) 25 mg PO BEDTIME [facility] Last Admin: 04/28/17 20:37 Dose: 25 mg Saccharomyces Boulardii (Florastor) 250 mg PO BID [facility] Last Admin: 04/28/17 20:34 Dose: 250 mg Senna/Docusate Sodium (Senna Plus) 2 tab PO BID [facility] Last Admin: 04/28/17 20:36 Dose: 2 tab Sodium Chloride (Saline Flush) 10 ml FLUSH ASDIRECTED PRN PRN Reason: Keep Vein Open Last Admin: 04/27/17 13:18 Dose: 10 ml Venlafaxine HCl (Effexor Xr) 75 mg PO BID [facility] Last Admin: 04/28/17 20:38 Dose: 75 mg Discontinued Medications Budesonide (Pulmicort) 0.5 mg NEB BIDRT [facility] Carisoprodol (Soma) 350 mg PO QID PRN PRN Reason: Muscle Spasm Dantrolene Sodium (Dantrium) 25 mg PO DAILY [facility] Dantrolene Sodium (Dantrium) 25 mg PO DAILY [facility] Diazepam (Valium) 2 mg IVPUSH ONETIME ONE Stop: 04/28/17 23:53 Last Admin: 04/29/17 00:02 Dose: 2 mg Diazepam (Valium) 2 mg PO QID PRN PRN Reason: Muscle Spasm Diclofenac Sodium (Voltaren 1% Gel) 100 gm TOP TID PRN PRN Reason: Pain Fentanyl (Duragesic) 75 mcg TRDERM Q72H [facility] Last Admin: 04/27/17 18:34 Dose: Not Given Fentanyl (Duragesic) 50 mcg TRDERM Q72H [facility] Last Admin: 04/28/17 07:51 Dose: Not Given Fentanyl (Duragesic) 50 mcg TRDERM Q72H [facility] Sodium Chloride (Normal Saline) 1,000 mls @ 125 mls/hr IV ASDIRECTED [facility] Last Admin: 04/29/17 02:36 Dose: 125 mls/hr Levofloxacin/Dextrose 750 mg/ (Premix) 150 mls @ 100 mls/hr IV ONETIME ONE Stop: 04/27/17 15:16 Last Admin: 04/27/17 14:09 Dose: 100 mls/hr Meropenem 500 mg/ Sodium (Chloride) 100 mls @ 200 mls/hr IV Q6H [facility] Magnesium Sulfate 2 gm/ Premix 50 mls @ 25 mls/hr IV ONETIME ONE Stop: 04/28/17 10:59 Last Admin: 04/28/17 09:47 Dose: 25 mls/hr Magnesium Citrate (Citrate Of Magnesia) 296 ml PO ONETIME ONE Stop: 04/27/17 16:09 Last Admin: 04/27/17 17:30 Dose: 296 ml Metoclopramide HCl (Reglan) 10 mg IVPUSH Q8H [facility] Last Admin: 04/28/17 23:27 Dose: 10 mg Miscellaneous Information (Remove Patch) 1 ea TRDERM Q72H [facility] Last Admin: 04/28/17 07:51 Dose: Not Given Multivitamins/Minerals (Cerovite Advanced Formula Tablet) 1 tab PO DAILY [facility] Last Admin: 04/28/17 12:08 Dose: Not Given Multivitamins/Minerals (Cerovite Advanced Formula Tablet) 1 tab PO DAILY [facility] Last Admin: 04/28/17 12:08 Dose: Not Given Non-Formulary Medication (Gabapentin) 400 mg PO TID [facility] Pantoprazole Sodium (Protonix) 40 mg PO DAILY [facility] Saccharomyces Boulardii (Florastor) 250 mg PO BID [facility] - Exam Quality Assessment: DVT Prophylaxis. No: Supplemental Oxygen (weaned and off of oxygen this am) General: Alert, Oriented, Cooperative, No Acute Distress HEENT: Pupils Equal, EOMI, Mucous Membr. Moist/[place] Neck: Supple. No: No JVD Lungs: Normal Respiratory Effort, Decreased Breath Sounds (mid to lower lobes). No: Crackles, Rales, Rhonchi, Wheezing Cardiovascular: Regular Rate, Regular Rhythm GI/Abdominal Exam: Distended (full and firm). No: Guarding, Rigid, Rebound, Tender (Male) Exam: No Hernia Extremities: Normal Inspection, No Pedal Edema, Normal Capillary Refill, Other ( mild contracture of hands bilat but is able to feed self; rt hand is more functional than left) Peripheral Pulses: 2+: Radial (L), Radial (R), Dorsalis Pedis (L), Dorsalis Pedis (R) Skin: Warm, Dry, Intact Neurological: Other (quadraplegia with some functioning of upper extremities; rt hand/arm more functional than lt) Psy/Mental Status: Alert, Normal Affect, Normal Mood - Problem List & Annotations (1) Pneumonia involving right lung SNOMED Code(s): 561236444 Code(s): J18.9 - PNEUMONIA, UNSPECIFIED ORGANISM Status: Acute Priority: High Current Visit: Yes Qualifiers: Pneumonia type: due to unspecified organism Lung location: lower lobe of lung Qualified Code(s): J18.1 - Lobar pneumonia, unspecified organism (2) Leukocytosis SNOMED Code(s): 058156332, 344985970 Code(s): D72.829 - ELEVATED WHITE BLOOD CELL COUNT, UNSPECIFIED Status: Acute Priority: High Current Visit: Yes (3) Fever SNOMED Code(s): 107854242 Code(s): R50.9 - FEVER, UNSPECIFIED Status: Acute Priority: High Current Visit: Yes (4) Neurogenic bladder SNOMED Code(s): 724118109 Code(s): N31.9 - NEUROMUSCULAR DYSFUNCTION OF BLADDER, UNSPECIFIED Status: Chronic Priority: Medium Current Visit: Yes (5) Chronic constipation SNOMED Code(s): 733989025 Code(s): K59.09 - OTHER CONSTIPATION Status: Chronic Priority: High Current Visit: Yes (6) Chronic incomplete quadriplegia SNOMED Code(s): 30632606, 715334227 Code(s): G82.50 - QUADRIPLEGIA, UNSPECIFIED Status: Chronic Priority: Medium Current Visit: Yes (7) Chronic pain SNOMED Code(s): 76125614 Code(s): G89.29 - OTHER CHRONIC PAIN Status: Chronic Priority: Medium Current Visit: Yes Qualifiers: Chronic pain type: other chronic pain Qualified Code(s): G89.29 - Other chronic pain (8) Muscle spasticity SNOMED Code(s): 152247245 Code(s): M62.838 - OTHER MUSCLE SPASM Status: Chronic Priority: Medium Current Visit: Yes - Problem List Review Problem List Initiated/Reviewed/Updated: Yes - My Orders Last 24 Hours: My Active Orders 04/28/17 09:00 Pantoprazole [ProTONIX] 40 mg PO DAILY Venlafaxine [Effexor XR] 75 mg PO BID 04/29/17 07:14 Communication Order [RC] ROUTINE 04/29/17 07:15 Lactulose [Cephulac] 20 gm PO BID 04/29/17 07:30 fentaNYL [Duragesic] 75 mcg TRDERM Q72H 04/29/17 21:00 ClonazePAM [KlonoPIN] 0.5 mg PO BEDTIME - Plan Plan:: I/P: Recurrent RLL Pnumonia--improving -Risk factors- recent hospitalization for PNA, Quadraplegia/immobility, Resides in Skilled Nursing -Merrem IV- florastor -Was recently treated with Levaquin and Zosyn, Augmentin on DC; rec'd 1 dose of Levaquin in ED prior to this admission -IVF -RT for aggressive pulmonary toilet--Question patient's compliance and motivation with IS/FV/C&DB post discharge with last bout of PNA--needs strong education re: pulmonary toilet with regards to quadraplegia and high risk for recurrent PNA -Duonebs QID, pulmicort, FV, IS, percussion -Mucinex -Supplemental oxygen to keep sats >90%--has been weaned as of this morning from supplemental oxygen -Up to chair TID per nursing -Repeat CXR to be completed this morning -Follow am labs--improving Leukocytosis/fever- 2/2 above--resolved -Follow am labs--improving -Tylenol PRN for fevers--fevers resolved Chronic constipation -- continues to be an ongoing issue; despite efforts no BM since 04/26 -Can improve bowel regimen; will add lactulose and fleets enema this am; consider treatment with newer targeted medication for opioid induced constipation upon discharge as outpatient/not on formulary here in hospital. -See orders -2/2 quadraplegia Neurogenic bladder -Stokes cath - cont with good cath cares -UC to assure no recurrent UTI--UC is negative -2/2 quadraplegia Quadraplegia -with spasticity- he is on lots of anticholinergics and narcotics for spasm which is likely contributing to constipation and chronically dry mouth. Will attempt to trim down regimen and see how patient tolerates. --Spasms are returning; valium given last night --Pain is increasing, requiring/requesting percocet every 4 hours; will increase fentanyl patch back up to 75mcg Q 72 hrs -Up to chair TID with nursing if safe -Cont PT/OT -Consider Neurology follow up as outpatient to help with medication options for spasticity/pain related to quadraplegia -Discussed case and chronic ongoing issues with constipation and spasticity with PCP, Dr. Galdamez. He has not seen Neurology locally as of yet. Dr. Galdamez is in agreement to Neurology referral as outpatient. He was in Inpatient Rehab in [place] prior to coming to [place] and under Dr. Galdamez's care. Other: DVT/GI prophylax PT/OT CM/SW for assist with DC planning- likely plan for DC back to [place] when ready /medically stable; likely DC back to [place] tomorrow if continues to do well.. See other orders Patient much improved today from PNA standpoint; looks and feels better; labs improving. Continue with current POC. Plan DC in 1-2 days if continues to do well. Patient is Full Code status
[2017-04-29] MEDS ORDERED: fentaNYL 75 MCG/HR Transdermal Patch TRDERM SCH (07:30)
[2017-04-29] MEDS: Polyethylene Glycol 3350 Powder 17 GM Packet PO SCH ×2 (08:35→20:58)
[2017-04-29] MEDS: Lactulose Soln 10 GM/15 ML 30 ML UD Cup PO SCH ×3 (08:43→20:57)
[2017-04-29] MEDS: Venlafaxine 75 MG Cap.ER PO SCH ×2 (08:43→21:00)
[2017-04-29] MEDS: Calcium Carbonate/Vitamin D3 1500 MG-200 Units Tab PO SCH ×2 (08:44→20:58)
[2017-04-29] MEDS: Saccharomyces Boulardii (Probiotic) 250 MG Cap PO SCH ×2 (08:45→20:58)
[2017-04-29] MEDS: Nicotine 7 MG/24 Hr Patch TRDERM SCH (08:45)
[2017-04-29] MEDS: Cyclobenzaprine 10 MG Tab PO SCH (08:45)
[2017-04-29] MEDS: Enoxaparin 40 MG/0.4 ML Syringe SUBCUT SCH (08:46)
[2017-04-29] MEDS: guaiFENesin 600 MG Tab.ER PO SCH ×2 (08:47→21:01)
[2017-04-29] MEDS: Budesonide 0.5 MG/2 ML Neb Susp NEB SCH ×2 (08:48→21:07)
[2017-04-29] MEDS: Gabapentin 300 MG Cap PO SCH ×3 (08:48→21:00)
[2017-04-29] MEDS: Pantoprazole 40 MG Tab.CR PO SCH (08:48)
[2017-04-29] MEDS: Multivitamins,Therapeutic Tab PO SCH (08:49)
[2017-04-29] MEDS: buPROPion 150 MG Tab.ER PO SCH (08:49)
--- NOTE | 2017-04-29 08:51 | CR ---
Chest: Portable view of the chest was obtained. Comparison: Previous chest x-ray of 04/27/17. Heart size is normal. Mild tortuosity of the thoracic aorta is seen. Increased lung markings are seen believed to be chronic and slightly accentuated due to technique. Nothing acute is definitely appreciated. Plate and screws noted within the right clavicle. Previous cervical spine surgery and lumbar spine surgery are noted. Impression: 1. Findings believed to be chronic as described above. Nothing acute is definitely appreciated. Diagnostic code #2
[2017-04-29] MEDS ORDERED: Magnesium Citrate Solution 296 ML Bottle PO ONE (09:13)
[2017-04-29] MEDS ORDERED: Bisacodyl 10 MG Supp RECTAL PRN (09:40)
[2017-04-29] MEDS: Magnesium Oxide 400 MG Tab PO SCH (10:21)
[2017-04-29] MEDS: Baclofen 10 MG Tab PO SCH ×3 (10:21→20:59)
[2017-04-29] MEDS: Calcium Polycarbophil 625 MG Tab PO SCH ×2 (10:21→20:58)
[2017-04-29] MEDS: tiZANidine 4 MG Tab PO SCH ×2 (10:21→21:00)
[2017-04-29] MEDS ORDERED: Meropenem 500 MG SDV ONE (11:30)
[2017-04-29] MEDS ORDERED: fentaNYL 50 MCG/HR Transdermal Patch TRDERM SCH (20:00)
[2017-04-29] MEDS: Cholecalciferol (Vitamin D3) 1,000 Unit Tab PO SCH (20:58)
[2017-04-29] MEDS ORDERED: MELATONIN 2 MG PO SCH (21:00)
[2017-04-29] MEDS ORDERED: BENZOCAINE RECTAL SCH (21:00)
[2017-04-29] MEDS: Primidone 50 MG Tab PO SCH (21:00)
[2017-04-29] MEDS ORDERED: DOCUSATE SODIUM RECTAL SCH (21:00)
[2017-04-29] MEDS ORDERED: ClonazePAM 0.5 MG Tab PO SCH (21:00)
[2017-04-29] MEDS ORDERED: Diazepam 2 MG Tab PO PRN (23:54)
[2017-04-30] MEDS: Meropenem 500 MG in Sodium Chloride 0.9% 100 ML IV SCH ×2 (01:17→06:36)
[2017-04-30] MEDS: Acetaminophen/oxyCODONE 325-5 MG Tab PO PRN ×3 (01:55→12:23)
[2017-04-30] MEDS: Diazepam 2 MG Tab PO PRN (01:56)
[2017-04-30] MEDS: Albuterol/Ipratropium 3.0-0.5 MG/3 ML Neb Soln NEB SCH ×2 (03:37→08:38)
[2017-04-30 07:42] VITALS: BP 130/93
[2017-04-30] MEDS: Saccharomyces Boulardii (Probiotic) 250 MG Cap PO SCH (08:11)
[2017-04-30] MEDS: Multivitamins,Therapeutic Tab PO SCH (08:11)
[2017-04-30] MEDS: Nicotine 7 MG/24 Hr Patch TRDERM SCH (08:11)
[2017-04-30] MEDS: Calcium Carbonate/Vitamin D3 1500 MG-200 Units Tab PO SCH (08:11)
[2017-04-30] MEDS: guaiFENesin 600 MG Tab.ER PO SCH (08:12)
[2017-04-30] MEDS: Baclofen 10 MG Tab PO SCH (08:13)
[2017-04-30] MEDS: Gabapentin 300 MG Cap PO SCH (08:13)
[2017-04-30] MEDS: Cholecalciferol (Vitamin D3) 1,000 Unit Tab PO SCH (08:13)
[2017-04-30] MEDS: buPROPion 150 MG Tab.ER PO SCH (08:13)
[2017-04-30] MEDS: Magnesium Oxide 400 MG Tab PO SCH (08:13)
[2017-04-30] MEDS: Calcium Polycarbophil 625 MG Tab PO SCH (08:14)
[2017-04-30] MEDS: Venlafaxine 75 MG Cap.ER PO SCH (08:14)
[2017-04-30] MEDS: tiZANidine 4 MG Tab PO SCH (08:16)
[2017-04-30] MEDS: Pantoprazole 40 MG Tab.CR PO SCH (08:16)
[2017-04-30] MEDS: Enoxaparin 40 MG/0.4 ML Syringe SUBCUT SCH (08:16)
[2017-04-30] MEDS: Lactulose Soln 10 GM/15 ML 30 ML UD Cup PO SCH (08:16)
[2017-04-30] MEDS: Polyethylene Glycol 3350 Powder 17 GM Packet PO SCH ×2 (08:17→08:23)
[2017-04-30] MEDS: Budesonide 0.5 MG/2 ML Neb Susp NEB SCH (08:38)
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
== END 2017-04-30 12:36 | DRG 193 ==
LOC: JD.ED 11:37 → JD.MS 15:14 → UNDOADMIN 15:26 → JD.MS 15:26
PROVIDERS: ADMIT Internal Medicine; ATTEND Internal Medicine
DX: J15.7 Pneumonia due to Mycoplasma pneumoniae (principal); J18.9 Pneumonia, unspecified organism; I25.9 Chronic ischemic heart disease, unspecified; G82.50 Quadriplegia, unspecified; D72.829 Elevated white blood cell count, unspecified; R32 Unspecified urinary incontinence; N31.9 Neuromuscular dysfunction of bladder, unspecified; K59.09 Other constipation; Z93.6 Other artificial openings of urinary tract status; S14.109S Unspecified injury at unspecified level of cervical spinal cord, sequela; M62.838 Other muscle spasm; S14.159S Other incomplete lesion at unspecified level of cervical spinal cord, sequela; V89.2XXS Person injured in unspecified motor-vehicle accident, traffic, sequela; H04.129 Dry eye syndrome of unspecified lacrimal gland; F32.9 Major depressive disorder, single episode, unspecified; F41.9 Anxiety disorder, unspecified; G47.00 Insomnia, unspecified; Z87.891 Personal history of nicotine dependence; Z79.899 Other long term (current) drug therapy
CPT/HCPCS: 36415; 71010; 74000; 80053; 81001; 83605; 85025; 86140; 87040 ×2; 87086; 93005; 96361; 96365; 96366; 99285; J1956; J7040; J7050; 80048; 83735; 94640-76; 94664; 94667; 94668; 94760; 94761; 97110-GO; 97110-GP; 97161-GP; 97167-GO; 97530-GP; 99284; A9270-GY; J1170; J1650; J2185; J2405; J2765; J3360; J3475; J7030

== ENCOUNTER 2018-04-22 19:56 | Emergency (ER) | payer MEDICAID ==
[2018-04-22 20:04] VITALS: BP 139/110
[2018-04-22] MEDS ORDERED: HYDROmorphone 0.5 MG/0.5 ML SYRINGE IVPUSH ONE (20:21)
[2018-04-22] MEDS ORDERED: Sodium Chloride 0.9% 1,000 ML IV SCH (20:30)
--- NOTE | 2018-04-22 20:42 | EDM.PDOC ---
ED HPI GENERAL MEDICAL PROBLEM - General Chief Complaint: Chest Pain Stated Complaint: [facility] Time Seen by Provider: 04/22/18 20:15 Source of Information: Reports: Patient, EMS History Limitations: Reports: No Limitations - History of Present Illness INITIAL COMMENTS - FREE TEXT/NARRATIVE: Patient is a 53-year-old male with a history of incomplete quadriplegia, UTIs, neurogenic bladder, muscle spasticity, opiod dependence, and ogilvies syndrome. Patient was at the [place] [facility] eating when he developed spasming pain between his shoulders. Pain localizes with no radiation down his abdomen into his legs. Patient has a previous history of pain as such. Usually only last for short period of time and then resolves. EMS staff states the patient was diaphoretic with O2 sats in the 80s. Patient was placed on O2 and is currently in the 95% on 2 L/m of O2 via nasal cannula. Patient's has a fentanyl patch in place. In addition patients abdomen is quite distended. He has a history of ogilvies. Patient denies any abdominal pain currently. States he receives a rectal tube every day to decrease any gas at forming. He had a bowel movement today with no blood present. Current findings are normal per patient. Patient denies history of aortic aneurysm, dissection, fever chills, shortness of breath , cough, chest pain, nausea/vomiting, abdominal pain, or any additional complaints. Patient states his appetite has been good. Posterior Back Pain Score (Numeric/FACES): 5 - Related Data Allergies Allergy/AdvReac Type Severity Reaction Status Date / Time No Known Allergies Allergy Verified 04/22/18 20:04 Home Meds: Home Meds Bisacodyl 10 mg RC DAILY PRN 08/17/16 [History] Cholecalciferol (Vitamin D3) [Vitamin D3] 2,000 unit PO DAILY 08/17/16 [History] Pantoprazole [ProTONIX] 20 mg PO DAILY 08/17/16 [History] Venlafaxine [Effexor XR] 75 mg PO BID 08/17/16 [History] Ascorbate Calcium [Vitamin C] 500 mg PO TID 04/13/17 [History] Calcium Polycarbophil [Fiber Tabs] 625 mg PO BID 04/13/17 [History] Lidocaine 5% [Lidoderm 5%] 700 mg TOP BID 04/13/17 [History] Magnesium 500 mg PO DAILY 04/13/17 [History] Methenamine Hippurate 1 gm PO BID 04/13/17 [History] Primidone 50 mg PO BEDTIME 04/13/17 [History] Triamcinolone Acetonide [Triamcinolone Acetonide 0.1% Crm] 1 gm TOP BID PRN 07/18 [History] buPROPion [Wellbutrin XL] 150 mg PO DAILY 04/13/17 [History] Gabapentin [Neurontin] 600 mg PO TID #0 tab 04/16/17 [Rx] Lidocaine 2% [Xylocaine 2% Jelly] 5 ml TOP BEDTIME #0 04/16/17 [Rx] Melatonin 2 mg PO BEDTIME #0 04/16/17 [Rx] Magnesium Citrate 300 ml PO ASDIRECTED PRN 04/28/17 [History] Budesonide [Pulmicort] 0.5 mg NEB BID #60 neb 04/30/17 [Rx] Lactulose [Cephulac] 20 gm PO BID #1 bottle 04/30/17 [Rx] Na Phos,M-B/Na Phos,DI-B [Fleet Enema] 266 ml RC DAILY PRN #7 bottle 04/30/17 [ Rx] Hydrocodone/Acetaminophen [Hydrocodon-Acetaminophn 10-325] 1 tab PO BID [History] tiZANidine [Zanaflex] 6 mg PO TID 03/04/18 [History] Baclofen 30 mg PO TID 03/05/18 [History] Multivitamin/Iron/Folic Acid [One Daily Multivitamin-Iron Tb] 1 tab PO DAILY 11/17 [History] Polyethylene Glycol 3350 [Laxaclear] 17 gm PO BID 03/05/18 [History] guaiFENesin [Mucinex] 1,200 mg PO BID 03/05/18 [History] Bisacodyl [Dulcolax] 1 supp RECTAL DAILY PRN 04/22/18 [History] Calcium Carbonate/Vitamin D3 [Calcium 600-Vit D3 800 Caplet] 1 tab PO DAILY [History] Ipratropium/Albuterol Sulfate [Iprat-Albut 0.5-3(2.5) mg/3 ml] 1 ampule INH Q6H 04/22/18 [History] Lubiprostone [Amitiza] 24 mcg PO BID 04/22/18 [History] Sennosides/Docusate Sodium [Senna-S] 2 tab PO BID 04/22/18 [History] Simethicone 80 mg PO TID 04/22/18 [History] Vit A,C & E/Lutein/Minerals [Healthy Eyes] 1 tab PO DAILY 04/22/18 [History] fentaNYL [Duragesic] 100 mcg TRDERM ASDIRECTED 04/22/18 [History] Past Medical History HEENT History: Reports: Other (See Below) Other HEENT History: Chronic dry eye Cardiovascular History: Reports: Other (See Below) Other Cardiovascular History: chronic ischemic heart disease Respiratory History: Reports: Pneumonia, Recurrent Gastrointestinal History: Reports: Other (See Below) Other Gastrointestinal History: hernia x2 Genitourinary History: Reports: Urinary Incontinence, Other (See Below) Other Genitourinary History: Indwelling cath, MRSA urine Musculoskeletal History: Reports: Other (See Below) Other Musculoskeletal History: quadripledgia Neurological History: Reports: Other (See Below) Other Neuro History: paraglegic Psychiatric History: Reports: Depression, Other (See Below) Other Psychiatric History: insomnia Endocrine/Metabolic History: Reports: Obesity/BMI 30+ - Infectious Disease History Infectious Disease History: Reports: MRSA - Past Surgical History Head Surgeries/Procedures: Reports: None HEENT Surgical History: Reports: Tonsillectomy Cardiovascular Surgical History: Reports: None Respiratory Surgical History: Reports: None GI Surgical History: Reports: Appendectomy, Hernia, Abdominal Male Surgical History: Reports: None Endocrine Surgical History: Reports: None Neurological Surgical History: Reports: C-Spine, Lumbar Spine Musculoskeletal Surgical History: Reports: None Dermatological Surgical History: Reports: None Social & Family History - Family History Family Medical History: Noncontributory - Tobacco Use Smoking Status *Q: Former Smoker Used Tobacco, but Quit: Yes Month/Year Tobacco Last Used: 05/2016 - Caffeine Use Caffeine Use: Reports: Coffee Other Caffeine Use: 2-4 cups of coffee every day and occassional soda - Recreational Drug Use Recreational Drug Use: No - Living Situation & Occupation Living situation: Reports: , with Family Occupation: Disabled ED ROS GENERAL - Review of Systems Review Of Systems: ROS reveals no pertinent complaints other than HPI. ED EXAM, GENERAL - Physical Exam Exam: See Below Exam Limited By: No Limitations General Appearance: Alert, WD/WN, Mild Distress Eye Exam: Bilateral Eye: Normal Inspection Ears: Hearing Grossly Normal Nose: Normal Inspection Throat/Mouth: Normal Inspection, Normal Voice, No Airway Compromise Neck: Normal Inspection, Supple, Full Range of Motion Respiratory/Chest: No Respiratory Distress, Lungs Clear, Normal Breath Sounds, No Accessory Muscle Use, Chest Non-Tender Cardiovascular: Normal Peripheral Pulses, No Murmur (Obvious), Tachycardia Peripheral Pulses: 1+: Posterior Tibial (L), Posterior Tibial (R), 2+: Radial (L ), Radial (R) GI/Abdominal: Distended, Rigid, Abnormal Bowel Sounds (Hyperactive), Other ( Large surgical incision to the abdomen from previous surgeries. ). No: Guarding , Rebound, Tender Back Exam: Normal Inspection. No: Decreased Range of Motion, Muscle Spasm, Paraspinal Tenderness, Vertebral Tenderness Extremities: No Pedal Edema, Other (History contract it with limited range of motion to the arms. Unable to move his lower extremities. No tenderness noted with palpation of the posterior aspect of his lower legs.). No: Redness Neurological: Alert, Oriented, CN II-XII Intact, Normal Cognition Psychiatric: Normal Affect, Normal Mood Skin Exam: Warm, Intact, Normal Color, No Rash, Diaphoretic Course - Vital Signs Last Recorded V/S: Last Vital Signs Temp 98.0 F 04/22/18 20:00 Pulse 113 H 04/22/18 20:00 Resp 16 04/22/18 20:00 BP 139/110 H 04/22/18 20:00 Pulse Ox 93 L 04/22/18 20:00 - Orders/Labs/Meds Labs: Laboratory Tests 04/22/18 04/22/18 Range/Units 20:53 20:53 WBC 9.96 H (4.23-9.07) K/mm3 RBC 5.22 (4.63-6.08) M/mm3 Hgb 14.5 (13.7-17.5) gm/L Hct 45.3 (40.1-51.0) % MCV 86.8 (79.0-92.2) fl MCH 27.8 (25.7-32.2) pg MCHC 32.0 L (32.2-35.5) g/dl RDW Std Deviation 46.8 H (35.1-43.9) fL Plt Count 232 (163-337) K/mm3 MPV 10.3 (9.4-12.3) fl Neutrophils % (Manual) 78 H (40-60) % Band Neutrophils % 0 (0-10) % Lymphocytes % (Manual) 18 L (20-40) % Atypical Lymphs % 0 % Monocytes % (Manual) 2 (2-10) % Eosinophils % (Manual) 1 (0.8-7.0) % Basophils % (Manual) 1 (0.2-1.2) Platelet Estimate Adequate Plt Morphology Comment Normal RBC Morph Comment Normal Sodium 139 (136-145) mEq/L Potassium 4.3 (3.5-5.1) mEq/L Chloride 103 (98-107) mEq/L Carbon Dioxide 24 (21-32) mEq/L Anion Gap 16.3 H (5-15) BUN 8 (7-18) mg/dL Creatinine 1.2 (0.7-1.3) mg/dL Est Cr Clr Drug Dosing 83.72 mL/min Estimated GFR (MDRD) > 60 (>60) mL/min BUN/Creatinine Ratio 6.7 L (14-18) Glucose 118 H (74-106) mg/dL Calcium 9.3 (8.5-10.1) mg/dL Total Bilirubin 0.3 (0.2-1.0) mg/dL AST 29 (15-37) U/L ALT 31 (16-63) U/L Alkaline Phosphatase 88 (46-116) U/L Troponin I < 0.017 (0.00-0.056) ng/mL C-Reactive Protein 1.4 H* (<1.0) mg/dL Total Protein 8.4 H (6.4-8.2) g/dl Albumin 4.0 (3.4-5.0) g/dl Globulin 4.4 gm/dL Albumin/Globulin Ratio 0.9 L (1-2) Meds: Medications Discontinued Medications Generic Name Dose Route Start Last Admin Trade Name Freq PRN Reason Stop Dose Admin Hydromorphone HCl 0.5 mg 04/22/18 20:21 04/22/18 20:40 Dilaudid IVPUSH 04/22/18 20:22 0.5 mg ONETIME ONE Administration Sodium Chloride 1,000 mls @ 150 mls/hr 04/22/18 20:30 04/22/18 20:40 Normal Saline IV 150 mls/hr ASDIRECTED [facility] Administration - Re-Assessments/Exams Free Text/Narrative Re-Assessment/Exam: IV established with Dilaudid 0.5 mg IVP and IV fluids. Initial labs include: CBC, chem 14, CRP, troponin, UA, EKG, KUB, and chest x- ray one view. Cannot get accurate blood pressure readings on the left side. Left arm is spasming. Right arm indicated blood pressure of 148/100. Initial blood pressure with admission on the left arm was 139/110. Pain to the mid thoracic region between the scapulas resolved with sitting up. 04/22/18 21:12 Chest and abdomen reviewed. Chest cavity is compressed about 50% due to increased air within the colon concerning for obstruction. No widened mediastinum. Discussed with Dr. Toth. He has reviewed the images and recommends to have Dr. Triplett review xray. I did speak with Dr. Triplett. Unsure at this point what he will do for the patient. He will come in and assess patient. Labs reviewed: CBC was essentially normal. Chemistry panel did not elicit any concerning findings. Current 1.2. Troponin less than 0.017. CRP 1.4. 2140 Dr. Triplett has reviewed the xray of the chest and abdomen. Patient does not require surgery at this point. No obvious free air present. If perforated you would suspect decompression of the colon. If admitted this would require medical management. Suggested rectal tube if able. Does not suggest CT of the chest and abdomen with current findings. Further imaging has been cancelled. Per patient he usually gets a rectal tube in the evening for a few hrs. Initially ordered d-dimer due to O2 sats are 88% on room air with hr 105. This was cancelled patients O2s trended upward to 90-91% on room air. HR trended downward to 96. DDimer was cancelled. Per patient he has some feeling to his lower legs and denies any pain and or increased swelling. He has no history of DVT/PE. 04/22/18 22:[address] Vivas general surgeon on-call at [facility]. At this point does not offer any additional suggestions for treatment. Believes the rectal tube placed for a few hrs should decompress his colon. NG tube will only make him miserable so does not suggest at this time. Does not believe a total colectomy is required at this point. This can be discussed on elective basis. If unable to decompress a colonoscopy may be of benefit. I have discussed all options with family and patient. I suggested staying here in the E.D. for a few hrs to allow the rectal rectal tube to decompress his colon. If unsuccessful in contact general surgeon building components designer for possible colonoscopy. Patient refuses to stay. Wishes to go back to the [place] [facility]. States since discharge from the hospital he has had multiple episodes of distended abdomen as such with relief via rectal tube. He is not concerned nor has any other complaints. Discharge instructions as documented. The patient remained hemodynamically stable while under my care in the E.D. I discussed the concerning symptoms for which to returnto the E.D. with the patient/family. The patient/family verbalized understanding. All questions were answered. 1100 Patients three daughters are present. I discussed findings with them. All questions were answered. I offered again to have patient stay for a few hrs to ensure rectal tube works and abdomen distention improves. Patient states he feels completely normal and wishes to be discharged home. Departure - Departure Time of Disposition: 22:42 Disposition: Home, Self-Care 01 Condition: Good Clinical Impression: Abdominal distension (gaseous), Ileus, Collin's syndrome, Spasm of thoracic back muscle - Discharge Information Instructions: Muscle Cramps and Spasms, [id number], Ileus Referrals: PCP,Unknown [Ordering Only Provider] - Forms: ED Department Discharge Additional Instructions: Suggest nothing by mouth until distention of abdomen improves with rectal tube placement. Suggest keeping the tube in place for the next few hours. If symptoms are not relieved with the rectal tube placement and/or you develop any nausea/vomiting, fever, pain, bloody stool, or any additional complaints please return back to the ED for further evaluation. May follow-up with her PCP to discuss referral to general surgery to discuss total colectomy.
--- NOTE | 2018-04-25 07:15 | CR ---
Abdomen: Supine view of the abdomen was obtained. Comparison: Prior abdominal x-ray of 03/07/18. Diffuse gaseous dilatation is seen throughout the colon having the appearance of a colonic ileus. Previous lumbar spine surgery is noted. Calcifications are seen within the pelvis most likely due to phleboliths. Impression: 1. Gaseous dilatation throughout the colon most likely representing colonic ileus. Diagnostic code #3
--- NOTE | 2018-04-25 07:15 | CR ---
Chest: Portable view of the chest was obtained. Comparison: Previous chest x-ray of 03/05/18. Poor inspiratory study is seen. Lungs are grossly clear. Heart size and mediastinum are within normal limits for portable technique. Plate and screws affix an old right clavicle fracture. Several old healed right-sided rib fractures are noted. Previous lumbar spine surgery is noted. Previous cervical spine surgery is noted. Mild gaseous dilatation of colon is seen most likely representing ileus. Impression: 1. Multiple findings as noted above. Nothing acute is seen. Diagnostic code #2
== END 2018-04-23 00:35 | disposition home or self-care (01) ==
LOC: JD.ED 19:56
DX: K56.7 Ileus, unspecified (principal); M62.830 Muscle spasm of back; E66.9 Obesity, unspecified; Z79.899 Other long term (current) drug therapy; Z87.891 Personal history of nicotine dependence
CPT/HCPCS: 36415; 71045; 74018; 80053; 84484; 85007; 85027; 86140; 93005; 96361; 96374; 99285; J1170; J7040; 99284

== ENCOUNTER 2018-11-02 07:12 | Inpatient (IN) | payer MEDICAID, MEDICARE ==
[2018-11-02] MEDS ORDERED: Ibuprofen 600 MG Tab PO ONE (07:58)
[2018-11-02] MEDS ORDERED: Levofloxacin/Dextrose 5%-Water 750 MG in Premix Bag 1 BAG IV ONE (07:58)
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
[2018-11-02] MEDS: Dextrose 5%-0.9% NaCl 1,000 ML IV SCH ×3 (08:30→22:28)
--- NOTE | 2018-11-02 08:45 | CR ---
Chest: Frontal view of the chest is obtained. Comparison: Prior chest x-ray of 04/22/18. Atelectasis is noted within the right midlung. There may be a minimal amount of fluid within the minor fissure on the right side as well. Mild perihilar interstitial change is seen on the left side. No alveolar type densities are seen. Heart size and mediastinum are normal. Previous cervical spine surgery and lumbar spine surgery is noted. Plate and screws are noted within the right clavicle. Impression: 1. Right midlung atelectasis. Questionable small amount of fluid within the right minor fissure. 2. Mild left-sided perihilar bronchitis is suspected. No pneumonia is identified at this time. 3. Other incidental findings. Diagnostic code #3
[2018-11-02] MEDS ORDERED: Bisacodyl 5 MG Tab PO PRN (16:34)
[2018-11-02] MEDS ORDERED: Albuterol 0.083% 2.5 MG/3 ML Neb Soln NEB PRN (16:34)
[2018-11-02] MEDS ORDERED: Ondansetron 4 MG Tab.DIS PO PRN (16:34)
[2018-11-02] MEDS ORDERED: Magnesium Hydroxide 400 MG/5 ML Susp 30 ML Cup PO PRN (16:34)
[2018-11-02] MEDS ORDERED: Polyethylene Glycol 3350 Powder 17 GM Packet PO PRN (16:34)
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
[2018-11-02] MEDS ORDERED: Vancomycin 1500 MG in Sodium Chloride 0.9% 500 ML IV SCH ×3 (17:00)
[2018-11-02] MEDS ORDERED: Magnesium Citrate Solution 296 ML Bottle PO PRN (17:10)
[2018-11-02] MEDS ORDERED: Bisacodyl 10 MG Supp RECTAL PRN (17:10)
[2018-11-02] MEDS ORDERED: Lidocaine 2% Jelly 5 ML Tube TOP PRN (17:10)
[2018-11-02] MEDS: Cefepime 2 GM in Premix Bag 1 BAG IV SCH (17:23)
[2018-11-02] MEDS: Vancomycin 1500 MG in Sodium Chloride 0.9% 500 ML IV SCH ×3 (17:55)
[2018-11-02] MEDS: Budesonide 0.5 MG/2 ML Neb Susp NEB SCH (20:07)
[2018-11-02] MEDS: Albuterol/Ipratropium 3.0-0.5 MG/3 ML Neb Soln INH SCH (20:07)
[2018-11-02] MEDS: Simethicone 80 MG Tab.Chew PO SCH (20:59)
[2018-11-02] MEDS: Polyethylene Glycol 3350 Powder 17 GM Packet PO SCH (20:59)
[2018-11-02] MEDS: Lactulose Soln 10 GM/15 ML 30 ML UD Cup PO SCH (20:59)
[2018-11-02] MEDS: Calcium Polycarbophil 625 MG Tab PO SCH (21:00)
[2018-11-02] MEDS: Gabapentin 600 MG Tab PO SCH (21:00)
[2018-11-02] MEDS: Baclofen 10 MG Tab PO SCH (21:00)
[2018-11-02] MEDS ORDERED: Lidocaine 5% 700 MG Patch TOP SCH (21:00)
[2018-11-02] MEDS: Primidone 50 MG Tab PO SCH (21:01)
[2018-11-02] MEDS: Acetaminophen/HYDROcodone 325-10 MG Tab PO SCH (21:01)
[2018-11-02] MEDS: Venlafaxine 75 MG Cap.ER PO SCH (21:02)
[2018-11-02] MEDS: guaiFENesin 600 MG Tab.ER PO SCH (21:02)
[2018-11-02] MEDS: tiZANidine 4 MG Tab PO SCH (21:03)
[2018-11-02] MEDS ORDERED: Acetaminophen 325 MG Tab PO PRN (21:09)
[2018-11-02] MEDS: Acetaminophen 325 MG Tab PO PRN (21:57)
[2018-11-02] MEDS: Lubiprostone 24 MCG Cap PO SCH (22:26)
[2018-11-03] MEDS: Albuterol/Ipratropium 3.0-0.5 MG/3 ML Neb Soln INH SCH ×4 (01:18→18:12)
[2018-11-03] MEDS: Cefepime 2 GM in Premix Bag 1 BAG IV SCH ×2 (04:36→18:25)
[2018-11-03] MEDS: Acetaminophen 325 MG Tab PO PRN (04:37)
[2018-11-03] MEDS: Budesonide 0.5 MG/2 ML Neb Susp NEB SCH ×2 (05:00→20:22)
[2018-11-03] MEDS: Dextrose 5%-0.9% NaCl 1,000 ML IV SCH (05:24)
[2018-11-03] MEDS: Vancomycin 1500 MG in Sodium Chloride 0.9% 500 ML IV SCH ×6 (05:27→18:23)
[2018-11-03] MEDS: Lidocaine 5% 700 MG Patch TOP SCH (05:32)
[2018-11-03] MEDS ORDERED: Sodium Chloride 0.9% 10 ML Syringe FLUSH PRN (06:48)
[2018-11-03] MEDS: Ibuprofen 600 MG Tab PO PRN (07:03)
[2018-11-03] MEDS ORDERED: Magnesium Sulfate/Water 2 GM in Premix Bag 1 BAG IV ONE (08:34)
[2018-11-03] MEDS: Lactulose Soln 10 GM/15 ML 30 ML UD Cup PO SCH ×2 (08:34→22:31)
[2018-11-03] MEDS: Baclofen 10 MG Tab PO SCH ×3 (08:35→22:32)
[2018-11-03] MEDS: Venlafaxine 75 MG Cap.ER PO SCH ×2 (08:36→22:33)
[2018-11-03] MEDS: Enoxaparin 40 MG/0.4 ML Syringe SUBCUT SCH (08:38)
[2018-11-03] MEDS: Calcium Polycarbophil 625 MG Tab PO SCH ×2 (08:38→22:32)
[2018-11-03] MEDS: Polyethylene Glycol 3350 Powder 17 GM Packet PO SCH ×2 (08:39→22:34)
[2018-11-03] MEDS: guaiFENesin 600 MG Tab.ER PO SCH ×2 (08:40→22:33)
[2018-11-03] MEDS: Gabapentin 600 MG Tab PO SCH ×3 (08:40→22:33)
[2018-11-03] MEDS: Acetaminophen/HYDROcodone 325-10 MG Tab PO SCH ×2 (08:41→22:32)
[2018-11-03] MEDS: Pantoprazole 40 MG Tab.CR PO SCH (08:42)
[2018-11-03] MEDS: Simethicone 80 MG Tab.Chew PO SCH ×3 (08:43→22:34)
[2018-11-03] MEDS: tiZANidine 4 MG Tab PO SCH ×3 (08:43→22:33)
--- NOTE | 2018-11-03 09:09 | CR ---
Chest: Portable view of the chest was obtained. Comparison: Prior chest x-ray of 11/02/18. Increasing density within the left mid to lower lung is seen when compared to prior exam. Slight thickening of the minor fissure is seen on the right side which is slightly improved. Mild atelectasis or scarring remains within the right midlung. Heart size is normal. Upper mediastinum is normal. Previous spine surgery and right clavicle surgery is stable. Impression: 1. Increasing density within the left mid to lower lung which represents an interval change from previous study. Findings presumably due to appearance of pneumonia. 2. Other incidental findings as noted above. Diagnostic code #3
--- NOTE | 2018-11-03 09:52 | PCM.PN ---
- General Info Date of Service: 11/03/18 Admission Dx/Problem (Free Text): Admission Diagnosis/Problem Admission Diagnosis/Problem Pneumonia Subjective Update: Patient denies any cough or shortness of breath. He does complain of a fever. Patient had multiple temperatures over 101 last night. He did get started on cefepime 2 g every 12 hours and vancomycin with the Levaquin. He did have some liquid stool yesterday per patient. His appetite is good. He had a 9 pound weight gain overnight and some increased wheezing per nursing. Functional Status: Reports: Pain Controlled - Review of Systems General: Reports: Fever, Night Sweats HEENT: Reports: No Symptoms Pulmonary: Reports: Cough. Denies: Shortness of Breath Cardiovascular: Denies: Chest Pain, Palpitations Gastrointestinal: Denies: Abdominal Pain, Constipation Psychiatric: Denies: Confusion, Depression - Patient Data Vitals - Most Recent: Last Vital Signs Temp 99.5 F 11/03/18 08:30 Pulse 84 11/03/18 08:30 Resp 18 11/03/18 08:30 BP 104/69 11/03/18 08:30 Pulse Ox 94 L 11/03/18 08:30 Weight - Most Recent: 224 lb 3.2 oz I&O - Last 24 Hours: Intake & Output 11/02/18 11/03/18 11/03/18 22:59 06:59 14:59 Intake Total 760 2885 Output Total 525 Balance 760 2360 Lab Results Last 24 Hours: Laboratory Results - last 24 hr 11/02/18 11/02/18 11/02/18 Range/Units 08:15 08:15 08:18 WBC (4.23-9.07) K/mm3 RBC (4.63-6.08) M/mm3 Hgb (13.7-17.5) gm/L Hct (40.1-51.0) % MCV (79.0-92.2) fl MCH (25.7-32.2) pg MCHC (32.2-35.5) g/dl RDW Std Deviation (35.1-43.9) fL Plt Count (163-337) K/mm3 MPV (9.4-12.3) fl Neut % (Auto) (34.0-67.9) % Lymph % (Auto) (21.8-53.1) % [place] % (Auto) (5.3-12.2) % Eos % (Auto) (0.8-7.0) Baso % (Auto) (0.1-1.2) % Neut # (Auto) (1.78-5.38) K/mm3 Lymph # (Auto) (1.32-3.57) K/mm3 [place] # (Auto) (0.30-0.82) K/mm3 Eos # (Auto) (0.04-0.54) K/mm3 Baso # (Auto) (0.01-0.08) K/mm3 Manual Slide Review ESR 17 H (0-15) mm/hr Sodium (136-145) mEq/L Potassium (3.5-5.1) mEq/L Chloride (98-107) mEq/L Carbon Dioxide (21-32) mEq/L Anion Gap (5-15) BUN (7-18) mg/dL Creatinine (0.7-1.3) mg/dL Est Cr Clr Drug Dosing mL/min Estimated GFR (MDRD) (>60) mL/min BUN/Creatinine Ratio (14-18) Glucose (74-106) mg/dL Lactic Acid (0.4-2.0) mmol/L Calcium (8.5-10.1) mg/dL Phosphorus (2.6-4.7) mg/dL Magnesium (1.8-2.4) mg/dl Total Bilirubin (0.2-1.0) mg/dL AST (15-37) U/L ALT (16-63) U/L Alkaline Phosphatase (46-116) U/L C-Reactive Protein (<1.0) mg/dL NT-Pro-B Natriuret Pep 495 H (0-125) pg/mL Total Protein (6.4-8.2) g/dl Albumin (3.4-5.0) g/dl Globulin gm/dL Albumin/Globulin Ratio (1-2) Urine Color Yellow (Yellow) Urine Appearance Turbid H (Clear) Urine pH 5.5 (5.0-8.0) Ur Specific [place] > or = 1.030 (1.005-1.030) Urine Protein 2+ H (Negative) Urine Glucose (UA) Negative (Negative) Urine Ketones Trace H (Negative) Urine Occult Blood Negative (Negative) Urine Nitrite Positive H (Negative) Urine Bilirubin Negative (Negative) Urine Urobilinogen 0.2 (0.2-1.0) Ur Leukocyte Esterase 1+ H (Negative) Urine RBC 0-5 (0-5) /hpf Urine WBC 10-20 H (0-5) /hpf Ur Epithelial Cells Not seen (0-5) /hpf Amorphous Sediment Many H (NOT SEEN) /hpf Urine Bacteria Many H (FEW) /hpf Urine Mucus Few (FEW) /hpf 11/02/18 11/03/18 11/03/18 Range/Units 14:38 06:10 06:10 WBC 13.71 H (4.23-9.07) K/mm3 RBC 4.24 L (4.63-6.08) M/mm3 Hgb 11.9 L (13.7-17.5) gm/L Hct 36.4 L (40.1-51.0) % MCV 85.8 (79.0-92.2) fl MCH 28.1 (25.7-32.2) pg MCHC 32.7 (32.2-35.5) g/dl RDW Std Deviation 46.9 H (35.1-43.9) fL Plt Count 166 (163-337) K/mm3 MPV 11.2 (9.4-12.3) fl Neut % (Auto) 86.5 H (34.0-67.9) % Lymph % (Auto) 6.6 L (21.8-53.1) % [place] % (Auto) 5.1 L (5.3-12.2) % Eos % (Auto) 1.6 (0.8-7.0) Baso % (Auto) 0.1 (0.1-1.2) % Neut # (Auto) 11.85 H (1.78-5.38) K/mm3 Lymph # (Auto) 0.91 L (1.32-3.57) K/mm3 [place] # (Auto) 0.70 (0.30-0.82) K/mm3 Eos # (Auto) 0.22 (0.04-0.54) K/mm3 Baso # (Auto) 0.01 (0.01-0.08) K/mm3 Manual Slide Review Normal smear ESR (0-15) mm/hr Sodium 134 L (136-145) mEq/L Potassium 3.6 (3.5-5.1) mEq/L Chloride 102 (98-107) mEq/L Carbon Dioxide 21 (21-32) mEq/L Anion Gap 14.6 (5-15) BUN 14 (7-18) mg/dL Creatinine 0.7 (0.7-1.3) mg/dL Est Cr Clr Drug Dosing 143.52 mL/min Estimated GFR (MDRD) > 60 (>60) mL/min BUN/Creatinine Ratio 20.0 H (14-18) Glucose 139 H (74-106) mg/dL Lactic Acid 1.4 (0.4-2.0) mmol/L Calcium 7.4 L (8.5-10.1) mg/dL Phosphorus 1.6 L (2.6-4.7) mg/dL Magnesium 1.7 L (1.8-2.4) mg/dl Total Bilirubin 0.4 (0.2-1.0) mg/dL AST 22 (15-37) U/L ALT 24 (16-63) U/L Alkaline Phosphatase 63 (46-116) U/L C-Reactive Protein 21.9 H* (<1.0) mg/dL NT-Pro-B Natriuret Pep (0-125) pg/mL Total Protein 6.4 (6.4-8.2) g/dl Albumin 2.7 L (3.4-5.0) g/dl Globulin 3.7 gm/dL Albumin/Globulin Ratio 0.7 L (1-2) Urine Color (Yellow) Urine Appearance (Clear) Urine pH (5.0-8.0) Ur Specific [place] (1.005-1.030) Urine Protein (Negative) Urine Glucose (UA) (Negative) Urine Ketones (Negative) Urine Occult Blood (Negative) Urine Nitrite (Negative) Urine Bilirubin (Negative) Urine Urobilinogen (0.2-1.0) Ur Leukocyte Esterase (Negative) Urine RBC (0-5) /hpf Urine WBC (0-5) /hpf Ur Epithelial Cells (0-5) /hpf Amorphous Sediment (NOT SEEN) /hpf Urine Bacteria (FEW) /hpf Urine Mucus (FEW) /hpf [place] Results Last 24 Hours: Microbiology 11/02/18 07:45 Gram Stain - Preliminary Sputum - Expectorated Sputum Culture - Preliminary Gram Positive Cocci 11/02/18 08:35 Aerobic Blood Culture - Preliminary Blood - Venous - Lab Draw NO GROWTH AFTER 1 DAY Anaerobic Blood Culture - Preliminary NO GROWTH AFTER 1 DAY 11/02/18 08:15 Aerobic Blood Culture - Preliminary Blood - Venous NO GROWTH AFTER 1 DAY Anaerobic Blood Culture - Preliminary NO GROWTH AFTER 1 DAY 11/02/18 10:45 Catheter Tip Culture - Preliminary Catheter Tip Other - Day Catheter Gram Negative Rods 11/02/18 08:00 Urine Culture - Preliminary Urine, Day Cath (Indwelling) Gram Negative Rods Med Orders - Current: Current Medications Acetaminophen (Tylenol) 650 mg PO Q4H PRN PRN Reason: Fever Last Admin: 11/03/18 04:37 Dose: 650 mg Hydrocodone Bitart/Acetaminophen ([place] 325-10 Mg) 1 tab PO BID [facility] Last Admin: 11/03/18 08:41 Dose: 1 tab Albuterol (Proventil Neb Soln) 2.5 mg NEB Q2H PRN PRN Reason: Shortness Of Breath/wheezing Albuterol/Ipratropium (Duoneb 3.0-0.5 Mg/3 Ml) 3 ml INH Q6H [facility] Last Admin: 11/03/18 05:00 Dose: 3 ml Baclofen (Lioresal) 30 mg PO TID [facility] Last Admin: 11/03/18 08:35 Dose: 30 mg Bisacodyl (Dulcolax) 5 mg PO DAILY PRN PRN Reason: Constipation Bisacodyl (Dulcolax) 10 mg RECTAL DAILY PRN PRN Reason: Constipation Budesonide (Pulmicort) 0.5 mg NEB BIDRT [facility] Last Admin: 11/03/18 05:00 Dose: 0.5 mg Bupropion HCl (Wellbutrin Xl) 150 mg PO DAILY [facility] Calcium Polycarbophil (Fibercon) 625 mg PO BID [facility] Last Admin: 11/03/18 08:38 Dose: 625 mg Enoxaparin Sodium (Lovenox) 40 mg SUBCUT DAILY [facility] Last Admin: 11/03/18 08:38 Dose: 40 mg Fentanyl (Duragesic) 100 mcg TRDERM Q72H [facility] Gabapentin (Neurontin) 600 mg PO TID [facility] Last Admin: 11/03/18 08:40 Dose: 600 mg Glucose Oxid/Lactoperoxid/Muramidas (Biotene Oralbalance Gel) 0 gm MUCMEM QID [facility] Guaifenesin (Mucinex) 1,200 mg PO BID [facility] Last Admin: 11/03/18 08:40 Dose: 1,200 mg Cefepime HCl 2 gm/ Premix 50 mls @ 100 mls/hr IV Q12H [facility] Last Admin: 11/03/18 04:36 Dose: 100 mls/hr Vancomycin HCl 1 gm/Vancomycin HCl 500 mg/ Sodium Chloride 500 mls @ 333.025 mls/hr IV Q12H [facility] Last Admin: 11/03/18 05:27 Dose: 250 mls/hr Magnesium Sulfate 2 gm/ Premix 50 mls @ 25 mls/hr IV ONETIME ONE Stop: 11/03/18 10:33 Ibuprofen (Motrin) 600 mg PO Q6H PRN PRN Reason: Fever Last Admin: 11/03/18 07:03 Dose: 600 mg Lactulose (Cephulac) 20 gm PO BID [facility] Last Admin: 11/03/18 08:34 Dose: Not Given Lidocaine (Lidoderm 5%) 700 mg TOP DAILY@0600 [facility] Last Admin: 11/03/18 05:32 Dose: 700 mg Lidocaine HCl (Xylocaine 2% Jelly) 5 ml TOP BEDTIME PRN PRN Reason: Constipation Lubiprostone (Amitiza) 24 mcg PO BID [facility] Last Admin: 11/02/18 22:26 Dose: Not Given Magnesium Citrate (Citrate Of Magnesia) 296 ml PO ASDIRECTED PRN PRN Reason: Constipation Magnesium Hydroxide (Milk Of Magnesia) 30 ml PO Q12H PRN PRN Reason: Constipation Magnesium Oxide (Magnesium Oxide) 400 mg PO BID [facility] Melatonin (Melatonin) 3 mg PO BEDTIME [facility] Miscellaneous Information (Remove Patch) 1 ea TRDERM DAILY@1900 [facility] Miscellaneous Information (Remove Patch) 1 ea TRDERM Q72H [facility] Ondansetron HCl (Zofran Odt) 4 mg PO Q6H PRN PRN Reason: nausea, able to take PO Pantoprazole Sodium (Protonix) 40 mg PO DAILY [facility] Last Admin: 11/03/18 08:42 Dose: 40 mg Polyethylene Glycol (Miralax) 17 gm PO DAILY PRN PRN Reason: Constipation Polyethylene Glycol (Miralax) 17 gm PO BID [facility] Last Admin: 11/03/18 08:39 Dose: 17 gm Primidone (Mysoline) 50 mg PO BEDTIME [facility] Last Admin: 11/02/18 21:01 Dose: 50 mg Senna/Docusate Sodium (Senna Plus) 1 tab PO BID PRN PRN Reason: Constipation Last Admin: 11/03/18 08:43 Dose: 1 tab Senna/Docusate Sodium (Senna Plus) 2 tab PO BID [facility] Last Admin: 11/03/18 08:47 Dose: 2 tab Simethicone (Simethicone) 80 mg PO TID [facility] Last Admin: 11/03/18 08:43 Dose: 80 mg Sodium Chloride (Saline Flush) 10 ml FLUSH ASDIRECTED PRN PRN Reason: Keep Vein Open Tizanidine HCl (Zanaflex) 6 mg PO TID [facility] Last Admin: 11/03/18 08:43 Dose: 6 mg Vancomycin HCl (Pharmacy To Dose - Vancomycin) 0 dose .XX ASDIRECTED PRN PRN Reason: RX TO DOSE VANCOMYCIN Venlafaxine HCl (Effexor Xr) 75 mg PO BID [facility] Last Admin: 11/03/18 08:36 Dose: 75 mg Discontinued Medications Dextrose/Sodium Chloride (Dextrose 5%-Normal Saline) 1,000 mls @ 150 mls/hr IV ASDIRECTED [facility] Last Admin: 11/03/18 05:24 Dose: 150 mls/hr Levofloxacin/Dextrose 750 mg/ (Premix) 150 mls @ 100 mls/hr IV ONETIME ONE Stop: 11/02/18 09:27 Last Admin: 11/02/18 08:40 Dose: 100 mls/hr Vancomycin HCl 1 gm/Vancomycin HCl 500 mg/ Sodium Chloride 500 mls @ 333.025 mls/hr IV Q12H [facility] Ibuprofen (Motrin) 600 mg PO ONETIME ONE Stop: 11/02/18 07:59 Last Admin: 11/02/18 09:02 Dose: 600 mg Lidocaine (Lidoderm 5%) 700 mg TOP BID [facility] - Exam Quality Assessment: Supplemental Oxygen General: Alert, Oriented HEENT: Pupils Equal Neck: Supple Lungs: Normal Respiratory Effort, Rhonchi (Left lower lobe) Cardiovascular: Regular Rate, Regular Rhythm GI/Abdominal Exam: Normal Bowel Sounds, Soft, Non-Tender Skin: Warm, Dry, Intact Psy/Mental Status: Alert, Normal Affect - Problem List & Annotations (1) Pneumonia SNOMED Code(s): 587964884 Code(s): J18.9 - PNEUMONIA, UNSPECIFIED ORGANISM Status: Acute Current Visit: Yes Qualifiers: Pneumonia type: due to unspecified organism Laterality: right Lung location: lower lobe of lung Qualified Code(s): J18.1 - Lobar pneumonia, unspecified organism (2) Hypoxia SNOMED Code(s): 550152751 Code(s): R09.02 - HYPOXEMIA Status: Acute Current Visit: Yes (3) Quadriplegia and quadriparesis SNOMED Code(s): 24015893 Code(s): G82.50 - QUADRIPLEGIA, UNSPECIFIED Status: Acute Current Visit: Yes (4) UTI (urinary tract infection) SNOMED Code(s): 87707740 Code(s): N39.0 - URINARY TRACT INFECTION, SITE NOT SPECIFIED Status: Acute Priority: High Current Visit: No Qualifiers: Urinary tract infection type: site unspecified Hematuria presence: without hematuria Qualified Code(s): N39.0 - Urinary tract infection, site not specified (5) Chronic constipation SNOMED Code(s): 891955886 Code(s): K59.09 - OTHER CONSTIPATION Status: Chronic Priority: High Current Visit: No (6) Chronic indwelling Day catheter SNOMED Code(s): 210019111 Code(s): Z96.0 - PRESENCE OF UROGENITAL IMPLANTS Status: Acute Current Visit: Yes - Problem List Review Problem List Initiated/Reviewed/Updated: Yes - My Orders Last 24 Hours: My Active Orders 11/02/18 16:07 Resuscitation Status Routine 11/02/18 16:34 Bedrest Bedside Commode [RC] ASDIRECTED Height and Weight [RC] 04 Intake and Output [RC] 04,16 Oxygen Therapy [RC] PRN VTE/DVT Education [RC] BID Vital Signs [RC] Q4HR Albuterol [Proventil Neb Soln] 2.5 mg NEB Q2H PRN Bisacodyl [Dulcolax] 5 mg PO DAILY PRN Docusate Sodium/Sennosides [Senna Plus] 1 tab PO BID PRN Magnesium Hydroxide [Milk of Magnesia] 30 ml PO Q12H PRN Ondansetron [Zofran ODT] 4 mg PO Q6H PRN Polyethylene Glycol 3350 [MiraLAX] 17 gm PO DAILY PRN 11/02/18 16:35 Pulse Oximetry [RC] PRN 11/02/18 16:37 RT Aerosol Therapy [RC] ASDIRECTED 11/02/18 16:45 Pharmacy to Dose - Vancomycin 0 dose .XX ASDIRECTED PRN 11/02/18 17:00 Cefepime [Maxipime in D5W 2 GM/50 ML] 2 gm Premix Bag 1 bag IV Q12H 11/02/18 17:10 Bisacodyl [Dulcolax] 10 mg RECTAL DAILY PRN Lidocaine 2% [Xylocaine 2% Jelly] 5 ml TOP BEDTIME PRN Magnesium Citrate [Citrate of Magnesia] 296 ml PO ASDIRECTED PRN 11/02/18 17:35 Admission Status [Patient Status] [ADT] Routine 11/02/18 18:00 Albuterol/Ipratropium [DuoNeb 3.0-0.5 MG/3 ML] 3 ml INH Q6H Vancomycin 1 gm Vancomycin 500 mg Sodium Chloride 0.9% [Normal Saline] 500 ml IV Q12H 11/02/18 21:00 Acetaminophen/HYDROcodone [[place] 325-10 MG] 1 tab PO BID Baclofen [Lioresal] 30 mg PO TID Budesonide [Pulmicort] 0.5 mg NEB BIDRT Calcium Polycarbophil [Fibercon] 625 mg PO BID Docusate Sodium/Sennosides [Senna Plus] 2 tab PO BID Gabapentin [Neurontin] 600 mg PO TID Lactulose [Cephulac] 20 gm PO BID Lubiprostone [Amitiza] 24 mcg PO BID Polyethylene Glycol 3350 [MiraLAX] 17 gm PO BID Primidone [Mysoline] 50 mg PO BEDTIME Simethicone 80 mg PO TID Venlafaxine [Effexor XR] 75 mg PO BID guaiFENesin [Mucinex] 1,200 mg PO BID tiZANidine [Zanaflex] 6 mg PO TID 11/02/18 21:13 Acetaminophen [Tylenol] 650 mg PO Q4H PRN 11/02/18 Dinner Regular Diet [DIET] 11/03/18 06:00 Lidocaine 5% [Lidoderm 5%] 700 mg TOP DAILY@0600 11/03/18 06:27 Ibuprofen [Motrin] 600 mg PO Q6H PRN 11/03/18 06:48 Sodium Chloride 0.9% [Saline Flush] 10 ml FLUSH ASDIRECTED PRN Convert IV to Saline Lock [OM.PC] Stat 11/03/18 07:04 RESPIRATORY PANEL Routine 11/03/18 08:34 Magnesium Sulfate/Water [Magnesium Sulfate 2 GM in Water 50 ML] 2 gm Premix Bag 1 bag IV ONETIME 11/03/18 09:00 Enoxaparin [Lovenox] 40 mg SUBCUT DAILY Lactoperoxi/Gluc Oxid/Pot Thio [Biotene Oralbalance Gel] 0 gm MUCMEM QID Magnesium Oxide 400 mg PO BID Pantoprazole [ProTONIX] 40 mg PO DAILY buPROPion [Wellbutrin XL] 150 mg PO DAILY 11/03/18 09:45 INFLUENZA A+B AG SCREEN [RM] Routine 11/03/18 19:00 Remove Patch 1 ea TRDERM DAILY@1900 11/03/18 21:00 Melatonin 3 mg PO BEDTIME Remove Patch 1 ea TRDERM Q72H fentaNYL [Duragesic] 100 mcg TRDERM Q72H 11/04/18 05:11 CRP [C-REACTIVE PROTEIN] [CHEM] AM - Plan Plan:: Pneumonia with hypoxia * Sputum culture growing gm + cocci, likely Staph Aureus. * Continues to have fevers overnight. * CXR demonstrates LLL pneumonia * Patient was given Levaquin in the emergency room. We added yesterday cefepime and vancomycin because he lives in a long-term care facility and he states he has a history of MRSA. * Respiratory therapy to eval and treat. * Albuterol nebs as needed * FiO2 to keep oximetry between 90 and 95%. Bacteriuria with possible UTI secondary to chronic indwelling catheter secondary to neurogenic bladder * gm - rods in urine culture * UA was positive for white blood cells, nitrites, and bacteria. * Patient has a chronic indwelling catheter so it is difficult to an no issues currently labs demonstrate active infection or just colonization. Patient was feverish but it appears that this may be coming from his lungs. Fortunately Levaquin will cover both his pneumonia and UTI. * Urine Culture was obtained in the ER Quadriplegia with chronic pain * Continue home pain medications. * Good bowel care. Hypomagnesemia * Replace mag with 2 gm and recheck in am. He has been on antibiotics for less than 24 hours. Continue close monitoring of vitals, respiratory status, and labs. Order influenza and respiratory panel. Chronic medical problems include recurrent pneumonia, ischemic heart disease, insomnia, chronic constipation, depression, spasticity, polypharmacy, GERD, history of MRSA. VT prophylaxis with Lovenox 40 mg CODE STATUS: Full code PCP: Doyle Galdamez M.D. I expect 2-3 days inpatient.
[2018-11-03] MEDS: Magnesium Oxide 400 MG Tab PO SCH ×2 (10:19→22:34)
[2018-11-03] MEDS: buPROPion 150 MG Tab.ER PO SCH (11:43)
[2018-11-03] MEDS: Lactoperoxi/Gluc Oxid/Pot Thio 42 GM Tube MUCMEM SCH ×4 (11:43→22:32)
[2018-11-03] MEDS: Lubiprostone 24 MCG Cap PO SCH ×2 (11:43→22:37)
[2018-11-03] MEDS: Levofloxacin/Dextrose 5%-Water 750 MG in Premix Bag 1 BAG IV SCH (12:22)
[2018-11-03] MEDS ORDERED: fentaNYL 100 MCG/HR Transdermal Patch TRDERM SCH (21:00)
[2018-11-03] MEDS: Primidone 50 MG Tab PO SCH (22:33)
[2018-11-03] MEDS: Melatonin 3 MG Tab PO SCH (22:36)
[2018-11-04] MEDS: Ibuprofen 600 MG Tab PO PRN (00:11)
[2018-11-04] MEDS: Albuterol/Ipratropium 3.0-0.5 MG/3 ML Neb Soln INH SCH ×4 (00:37→17:32)
[2018-11-04] MEDS: Cefepime 2 GM in Premix Bag 1 BAG IV SCH (04:46)
[2018-11-04] MEDS: Budesonide 0.5 MG/2 ML Neb Susp NEB SCH ×2 (06:27→20:23)
[2018-11-04] MEDS: Vancomycin 1500 MG in Sodium Chloride 0.9% 500 ML IV SCH ×3 (06:56)
[2018-11-04] MEDS: Lidocaine 5% 700 MG Patch TOP SCH (07:05)
[2018-11-04] MEDS: Pantoprazole 40 MG Tab.CR PO SCH (09:28)
[2018-11-04] MEDS: Gabapentin 600 MG Tab PO SCH ×3 (09:28→20:53)
[2018-11-04] MEDS: Polyethylene Glycol 3350 Powder 17 GM Packet PO SCH ×2 (09:28→20:49)
[2018-11-04] MEDS: Venlafaxine 37.5 MG Tab PO SCH ×2 (09:29→20:58)
[2018-11-04] MEDS: Simethicone 80 MG Tab.Chew PO SCH ×3 (09:30→20:53)
[2018-11-04] MEDS: Acetaminophen/HYDROcodone 325-10 MG Tab PO SCH ×2 (09:30→20:54)
[2018-11-04] MEDS: buPROPion 150 MG Tab.ER PO SCH (09:30)
[2018-11-04] MEDS: Magnesium Oxide 400 MG Tab PO SCH ×2 (09:30→20:53)
[2018-11-04] MEDS: tiZANidine 4 MG Tab PO SCH ×3 (09:31→20:52)
[2018-11-04] MEDS: guaiFENesin 600 MG Tab.ER PO SCH ×2 (09:31→20:51)
[2018-11-04] MEDS: Lactulose Soln 10 GM/15 ML 30 ML UD Cup PO SCH ×2 (09:33→20:50)
[2018-11-04] MEDS: Lubiprostone 24 MCG Cap PO SCH ×2 (09:33→20:58)
[2018-11-04] MEDS: Baclofen 10 MG Tab PO SCH ×3 (09:33→20:51)
[2018-11-04] MEDS: Calcium Polycarbophil 625 MG Tab PO SCH ×2 (09:33→20:51)
[2018-11-04] MEDS: Lidocaine 4% 1 each Patch TOP SCH (09:36)
[2018-11-04] MEDS: Enoxaparin 40 MG/0.4 ML Syringe SUBCUT SCH (09:37)
[2018-11-04] MEDS: Lactoperoxi/Gluc Oxid/Pot Thio 42 GM Tube MUCMEM SCH ×6 (09:38→21:00)
--- NOTE | 2018-11-04 09:52 | PCM.PN ---
- General Info Date of Service: 11/04/18 Admission Dx/Problem (Free Text): Admission Diagnosis/Problem Admission Diagnosis/Problem Pneumonia Subjective Update: November 04, 2018 Patient had an uneventful night. Tmax was 100.6. He continues on 3 antibiotics awaiting culture results of sputum and urine. Influenza and viral respiratory panel negative. Bowel care provided with adequate results. November 03, 2018 Patient denies any cough or shortness of breath. He does complain of a fever. Patient had multiple temperatures over 101 last night. He did get started on cefepime 2 g every 12 hours and vancomycin with the Levaquin. He did have some liquid stool yesterday per patient. His appetite is good. He had a 9 pound weight gain overnight and some increased wheezing per nursing. Functional Status: Reports: Pain Controlled - Review of Systems General: Reports: Fever. Denies: Weakness, Fatigue HEENT: Reports: No Symptoms Pulmonary: Reports: No Symptoms. Denies: Shortness of Breath, Cough Cardiovascular: Reports: No Symptoms. Denies: Chest Pain, Palpitations Gastrointestinal: Reports: No Symptoms. Denies: Abdominal Pain, Constipation - Patient Data Vitals - Most Recent: Last Vital Signs Temp 99.9 F 11/04/18 08:10 Pulse 83 11/04/18 08:10 Resp 16 11/04/18 08:10 BP 120/75 11/04/18 08:10 Pulse Ox 94 L 11/04/18 08:10 Weight - Most Recent: 228 lb 12.8 oz I&O - Last 24 Hours: Intake & Output 11/03/18 11/04/18 11/04/18 22:59 06:59 14:59 Intake Total 1130 1600 Output Total 775 1400 Balance 355 200 Lab Results Last 24 Hours: Laboratory Results - last 24 hr 11/03/18 11/03/18 11/03/18 Range/Units 12:00 13:00 18:38 WBC (4.23-9.07) K/mm3 RBC (4.63-6.08) M/mm3 Hgb (13.7-17.5) gm/L Hct (40.1-51.0) % MCV (79.0-92.2) fl MCH (25.7-32.2) pg MCHC (32.2-35.5) g/dl RDW Std Deviation (35.1-43.9) fL Plt Count (163-337) K/mm3 MPV (9.4-12.3) fl Neut % (Auto) (34.0-67.9) % Lymph % (Auto) (21.8-53.1) % Hern[place] % (Auto) (5.3-12.2) % Eos % (Auto) (0.8-7.0) Baso % (Auto) (0.1-1.2) % Neut # (Auto) (1.78-5.38) K/mm3 Lymph # (Auto) (1.32-3.57) K/mm3 Hern[place] # (Auto) (0.30-0.82) K/mm3 Eos # (Auto) (0.04-0.54) K/mm3 Baso # (Auto) (0.01-0.08) K/mm3 Manual Slide Review Sodium (136-145) mEq/L Potassium (3.5-5.1) mEq/L Chloride (98-107) mEq/L Carbon Dioxide (21-32) mEq/L Anion Gap (5-15) BUN (7-18) mg/dL Creatinine (0.7-1.3) mg/dL Est Cr Clr Drug Dosing mL/min Estimated GFR (MDRD) (>60) mL/min BUN/Creatinine Ratio (14-18) Glucose (74-106) mg/dL Lactic Acid 0.8 2.3 H (0.4-2.0) mmol/L Calcium (8.5-10.1) mg/dL Phosphorus (2.6-4.7) mg/dL Magnesium (1.8-2.4) mg/dl Total Bilirubin (0.2-1.0) mg/dL AST (15-37) U/L ALT (16-63) U/L Alkaline Phosphatase (46-116) U/L C-Reactive Protein (<1.0) mg/dL Total Protein (6.4-8.2) g/dl Albumin (3.4-5.0) g/dl Globulin gm/dL Albumin/Globulin Ratio (1-2) Vancomycin Trough (10.0-20.0) Adenovirus (PCR) Not detected (Not Detected) B. pertussis DNA (PCR) Not detected (Not Detected) B.parapertussis DNA PCR Not detected (Not Detected) C. pneumoniae DNA (PCR) Not detected (Not Detected) Coronavirus (PCR) Not detected (Not Detected) Human Metapneumovir PCR Not detected (Not Detected) Influenza A (RT-PCR) Not detected (Not Detected) Influenza B (RT-PCR) Not detected (Not Detected) M. pneumoniae (PCR) Not detected (Not Detected) Parainfluen 1,2,3,4 PCR Not detected (Not Detected) RSV (PCR) Not detected (Not Detected) Entero/Rhino (PCR) Not detected (Not Detected) 11/04/18 11/04/18 11/04/18 Range/Units 00:43 05:29 05:29 WBC 10.51 H (4.23-9.07) K/mm3 RBC 4.35 L (4.63-6.08) M/mm3 Hgb 12.1 L (13.7-17.5) gm/L Hct 36.9 L (40.1-51.0) % MCV 84.8 (79.0-92.2) fl MCH 27.8 (25.7-32.2) pg MCHC 32.8 (32.2-35.5) g/dl RDW Std Deviation 45.5 H (35.1-43.9) fL Plt Count 171 (163-337) K/mm3 MPV 11.1 (9.4-12.3) fl Neut % (Auto) 82.5 H (34.0-67.9) % Lymph % (Auto) 6.9 L (21.8-53.1) % Hernando % (Auto) 8.3 (5.3-12.2) % Eos % (Auto) 1.9 (0.8-7.0) Baso % (Auto) 0.2 (0.1-1.2) % Neut # (Auto) 8.68 H (1.78-5.38) K/mm3 Lymph # (Auto) 0.72 L (1.32-3.57) K/mm3 Hernando # (Auto) 0.87 H (0.30-0.82) K/mm3 Eos # (Auto) 0.20 (0.04-0.54) K/mm3 Baso # (Auto) 0.02 (0.01-0.08) K/mm3 Manual Slide Review Abnormal smear Sodium 135 L (136-145) mEq/L Potassium 4.0 (3.5-5.1) mEq/L Chloride 101 (98-107) mEq/L Carbon Dioxide 26 (21-32) mEq/L Anion Gap 12.0 (5-15) BUN 8 (7-18) mg/dL Creatinine 0.6 L (0.7-1.3) mg/dL Est Cr Clr Drug Dosing 167.44 mL/min Estimated GFR (MDRD) > 60 (>60) mL/min BUN/Creatinine Ratio 13.3 L (14-18) Glucose 112 H (74-106) mg/dL Lactic Acid 1.2 (0.4-2.0) mmol/L Calcium 8.3 L (8.5-10.1) mg/dL Phosphorus 3.1 (2.6-4.7) mg/dL Magnesium 2.2 (1.8-2.4) mg/dl Total Bilirubin 0.5 (0.2-1.0) mg/dL AST 25 (15-37) U/L ALT 29 (16-63) U/L Alkaline Phosphatase 80 (46-116) U/L C-Reactive Protein 24.4 H* (<1.0) mg/dL Total Protein 6.8 (6.4-8.2) g/dl Albumin 2.9 L (3.4-5.0) g/dl Globulin 3.9 gm/dL Albumin/Globulin Ratio 0.7 L (1-2) Vancomycin Trough (10.0-20.0) Adenovirus (PCR) (Not Detected) B. pertussis DNA (PCR) (Not Detected) B.parapertussis DNA PCR (Not Detected) C. pneumoniae DNA (PCR) (Not Detected) Coronavirus (PCR) (Not Detected) Human Metapneumovir PCR (Not Detected) Influenza A (RT-PCR) (Not Detected) Influenza B (RT-PCR) (Not Detected) M. pneumoniae (PCR) (Not Detected) Parainfluen 1,2,3,4 PCR (Not Detected) RSV (PCR) (Not Detected) Entero/Rhino (PCR) (Not Detected) 11/04/18 Range/Units 05:30 WBC (4.23-9.07) K/mm3 RBC (4.63-6.08) M/mm3 Hgb (13.7-17.5) gm/L Hct (40.1-51.0) % MCV (79.0-92.2) fl MCH (25.7-32.2) pg MCHC (32.2-35.5) g/dl RDW Std Deviation (35.1-43.9) fL Plt Count (163-337) K/mm3 MPV (9.4-12.3) fl Neut % (Auto) (34.0-67.9) % Lymph % (Auto) (21.8-53.1) % Hernando % (Auto) (5.3-12.2) % Eos % (Auto) (0.8-7.0) Baso % (Auto) (0.1-1.2) % Neut # (Auto) (1.78-5.38) K/mm3 Lymph # (Auto) (1.32-3.57) K/mm3 [place] # (Auto) (0.30-0.82) K/mm3 Eos # (Auto) (0.04-0.54) K/mm3 Baso # (Auto) (0.01-0.08) K/mm3 Manual Slide Review Sodium (136-145) mEq/L Potassium (3.5-5.1) mEq/L Chloride (98-107) mEq/L Carbon Dioxide (21-32) mEq/L Anion Gap (5-15) BUN (7-18) mg/dL Creatinine (0.7-1.3) mg/dL Est Cr Clr Drug Dosing mL/min Estimated GFR (MDRD) (>60) mL/min BUN/Creatinine Ratio (14-18) Glucose (74-106) mg/dL Lactic Acid (0.4-2.0) mmol/L Calcium (8.5-10.1) mg/dL Phosphorus (2.6-4.7) mg/dL Magnesium (1.8-2.4) mg/dl Total Bilirubin (0.2-1.0) mg/dL AST (15-37) U/L ALT (16-63) U/L Alkaline Phosphatase (46-116) U/L C-Reactive Protein (<1.0) mg/dL Total Protein (6.4-8.2) g/dl Albumin (3.4-5.0) g/dl Globulin gm/dL Albumin/Globulin Ratio (1-2) Vancomycin Trough 10.0 (10.0-20.0) Adenovirus (PCR) (Not Detected) B. pertussis DNA (PCR) (Not Detected) B.parapertussis DNA PCR (Not Detected) C. pneumoniae DNA (PCR) (Not Detected) Coronavirus (PCR) (Not Detected) Human Metapneumovir PCR (Not Detected) Influenza A (RT-PCR) (Not Detected) Influenza B (RT-PCR) (Not Detected) M. pneumoniae (PCR) (Not Detected) Parainfluen 1,2,3,4 PCR (Not Detected) RSV (PCR) (Not Detected) Entero/Rhino (PCR) (Not Detected) Domingo Results Last 24 Hours: Microbiology 11/02/18 08:35 Aerobic Blood Culture - Preliminary Blood - Venous - Lab Draw NO GROWTH AFTER 2 DAYS Anaerobic Blood Culture - Preliminary NO GROWTH AFTER 2 DAYS 11/02/18 08:15 Aerobic Blood Culture - Preliminary Blood - Venous NO GROWTH AFTER 2 DAYS Anaerobic Blood Culture - Preliminary NO GROWTH AFTER 2 DAYS 11/02/18 10:45 Catheter Tip Culture - Preliminary Catheter Tip Other - Day Catheter Gram Negative Rods 11/02/18 07:45 Gram Stain - Final Sputum - Expectorated Sputum Culture - Preliminary Gram Positive Cocci 11/03/18 11:45 Influenza Type A Antigen Screen - Final Nasopharyngeal Swab NEGATIVE INFLUENZA A VIRUS AG Influenza Type B Antigen Screen - Final NEGATIVE INFLUENZA B VIRUS AG 11/02/18 08:00 Urine Culture - Preliminary Urine, Day Cath (Indwelling) Gram Negative Rods Med Orders - Current: Current Medications Acetaminophen (Tylenol) 650 mg PO Q4H PRN PRN Reason: Fever Last Admin: 11/03/18 04:37 Dose: 650 mg Hydrocodone Bitart/Acetaminophen ([place] 325-10 Mg) 1 tab PO BID JAIRO Last Admin: 11/04/18 09:30 Dose: 1 tab Albuterol (Proventil Neb Soln) 2.5 mg NEB Q2H PRN PRN Reason: Shortness Of Breath/wheezing Albuterol/Ipratropium (Duoneb 3.0-0.5 Mg/3 Ml) 3 ml INH Q6H JAIRO Last Admin: 11/04/18 06:26 Dose: 3 ml Baclofen (Lioresal) 30 mg PO TID JAIRO Last Admin: 11/04/18 09:33 Dose: 30 mg Bisacodyl (Dulcolax) 5 mg PO DAILY PRN PRN Reason: Constipation Bisacodyl (Dulcolax) 10 mg RECTAL DAILY PRN PRN Reason: Constipation Budesonide (Pulmicort) 0.5 mg NEB BIDRT [facility] Last Admin: 11/04/18 06:27 Dose: 0.5 mg Bupropion HCl (Wellbutrin Xl) 150 mg PO DAILY [facility] Last Admin: 11/04/18 09:30 Dose: 150 mg Calcium Polycarbophil (Fibercon) 625 mg PO BID [facility] Last Admin: 11/04/18 09:33 Dose: 625 mg Enoxaparin Sodium (Lovenox) 40 mg SUBCUT DAILY [facility] Last Admin: 11/04/18 09:37 Dose: 40 mg Fentanyl (Duragesic) 100 mcg TRDERM Q72H [facility] Last Admin: 11/03/18 22:36 Dose: 100 mcg Gabapentin (Neurontin) 600 mg PO TID [facility] Last Admin: 11/04/18 09:28 Dose: 600 mg Glucose Oxid/Lactoperoxid/Muramidas (Biotene Oralbalance Gel) 0 gm MUCMEM QID [facility] Last Admin: 11/04/18 09:38 Dose: Not Given Guaifenesin (Mucinex) 1,200 mg PO BID [facility] Last Admin: 11/04/18 09:31 Dose: 1,200 mg Cefepime HCl 2 gm/ Premix 50 mls @ 100 mls/hr IV Q12H [facility] Last Admin: 11/04/18 04:46 Dose: 100 mls/hr Vancomycin HCl 1 gm/Vancomycin HCl 500 mg/ Sodium Chloride 500 mls @ 250 mls/ hr IV Q12H [facility] Last Admin: 11/04/18 06:56 Dose: 250 mls/hr Levofloxacin/Dextrose 750 mg/ (Premix) 150 mls @ 100 mls/hr IV Q24H [facility] Last Admin: 11/03/18 12:22 Dose: 100 mls/hr Ibuprofen (Motrin) 600 mg PO Q6H PRN PRN Reason: Fever Last Admin: 11/04/18 00:11 Dose: 600 mg Lactulose (Cephulac) 20 gm PO BID [facility] Last Admin: 11/04/18 09:33 Dose: 20 gm Lidocaine (Aspercreme 4%) 1 each TOP Q24H [facility] Last Admin: 11/04/18 09:36 Dose: 1 each Lidocaine HCl (Xylocaine 2% Jelly) 5 ml TOP BEDTIME PRN PRN Reason: Constipation Lubiprostone (Amitiza) 24 mcg PO BID [facility] Last Admin: 11/04/18 09:33 Dose: 24 mcg Magnesium Citrate (Citrate Of Magnesia) 296 ml PO ASDIRECTED PRN PRN Reason: Constipation Magnesium Hydroxide (Milk Of Magnesia) 30 ml PO Q12H PRN PRN Reason: Constipation Magnesium Oxide (Magnesium Oxide) 400 mg PO BID [facility] Last Admin: 11/04/18 09:30 Dose: 400 mg Melatonin (Melatonin) 3 mg PO BEDTIME [facility] Last Admin: 11/03/18 22:36 Dose: 3 mg Miscellaneous Information (Remove Patch) 1 ea TRDERM Q72H [facility] Last Admin: 11/03/18 22:35 Dose: 1 ea Miscellaneous Information (Remove Patch) 1 ea TRDERM DAILY@1900 [facility] Miscellaneous Information (Remove Patch) 1 ea TRDERM Q24H [facility] Ondansetron HCl (Zofran Odt) 4 mg PO Q6H PRN PRN Reason: nausea, able to take PO Pantoprazole Sodium (Protonix) 40 mg PO DAILY [facility] Last Admin: 11/04/18 09:28 Dose: 40 mg Polyethylene Glycol (Miralax) 17 gm PO DAILY PRN PRN Reason: Constipation Polyethylene Glycol (Miralax) 17 gm PO BID [facility] Last Admin: 11/04/18 09:28 Dose: 17 gm Primidone (Mysoline) 25 mg PO BEDTIME [facility] Senna/Docusate Sodium (Senna Plus) 1 tab PO BID PRN PRN Reason: Constipation Last Admin: 11/03/18 08:43 Dose: 1 tab Senna/Docusate Sodium (Senna Plus) 2 tab PO BID [facility] Last Admin: 11/04/18 09:30 Dose: 2 tab Simethicone (Simethicone) 80 mg PO TID [facility] Last Admin: 11/04/18 09:30 Dose: 80 mg Sodium Chloride (Saline Flush) 10 ml FLUSH ASDIRECTED PRN PRN Reason: Keep Vein Open Tizanidine HCl (Zanaflex) 6 mg PO TID [facility] Last Admin: 11/04/18 09:31 Dose: 6 mg Vancomycin HCl (Pharmacy To Dose - Vancomycin) 0 dose .XX ASDIRECTED PRN PRN Reason: RX TO DOSE VANCOMYCIN Venlafaxine HCl (Effexor) 75 mg PO BID [facility] Last Admin: 11/04/18 09:29 Dose: 75 mg Discontinued Medications Dextrose/Sodium Chloride (Dextrose 5%-Normal Saline) 1,000 mls @ 150 mls/hr IV ASDIRECTED [facility] Last Admin: 11/03/18 05:24 Dose: 150 mls/hr Levofloxacin/Dextrose 750 mg/ (Premix) 150 mls @ 100 mls/hr IV ONETIME ONE Stop: 11/02/18 09:27 Last Admin: 11/02/18 08:40 Dose: 100 mls/hr Vancomycin HCl 1 gm/Vancomycin HCl 500 mg/ Sodium Chloride 500 mls @ 333.025 mls/hr IV Q12H [facility] Magnesium Sulfate 2 gm/ Premix 50 mls @ 25 mls/hr IV ONETIME ONE Stop: 11/03/18 10:33 Last Admin: 11/03/18 10:19 Dose: 25 mls/hr Ibuprofen (Motrin) 600 mg PO ONETIME ONE Stop: 11/02/18 07:59 Last Admin: 11/02/18 09:02 Dose: 600 mg Lidocaine (Lidoderm 5%) 700 mg TOP BID [facility] Lidocaine (Lidoderm 5%) 700 mg TOP DAILY@0600 [facility] Last Admin: 11/04/18 07:05 Dose: Not Given Miscellaneous Information (Remove Patch) 1 ea TRDERM DAILY@1900 [facility] Last Admin: 11/03/18 19:00 Dose: 1 ea Primidone (Mysoline) 50 mg PO BEDTIME [facility] Last Admin: 11/03/18 22:33 Dose: 50 mg Venlafaxine HCl (Effexor Xr) 75 mg PO BID [facility] Last Admin: 11/03/18 22:33 Dose: 75 mg - Exam Quality Assessment: Supplemental Oxygen General: Alert, Oriented HEENT: Pupils Equal Lungs: Normal Respiratory Effort, Wheezing (Bibasilar) GI/Abdominal Exam: Normal Bowel Sounds, Soft, Non-Tender Extremities: Normal Inspection, No Pedal Edema Skin: Warm, Dry - Problem List & Annotations (1) Pneumonia SNOMED Code(s): 912455431 Code(s): J18.9 - PNEUMONIA, UNSPECIFIED ORGANISM Status: Acute Current Visit: Yes Qualifiers: Pneumonia type: due to unspecified organism Laterality: right Lung location: lower lobe of lung Qualified Code(s): J18.1 - Lobar pneumonia, unspecified organism (2) Hypoxia SNOMED Code(s): 510561901 Code(s): R09.02 - HYPOXEMIA Status: Acute Current Visit: Yes (3) Quadriplegia and quadriparesis SNOMED Code(s): 86524407 Code(s): G82.50 - QUADRIPLEGIA, UNSPECIFIED Status: Acute Current Visit: Yes (4) UTI (urinary tract infection) SNOMED Code(s): 33327629 Code(s): N39.0 - URINARY TRACT INFECTION, SITE NOT SPECIFIED Status: Acute Priority: High Current Visit: No Qualifiers: Urinary tract infection type: site unspecified Hematuria presence: without hematuria Qualified Code(s): N39.0 - Urinary tract infection, site not specified (5) Chronic constipation SNOMED Code(s): 210010834 Code(s): K59.09 - OTHER CONSTIPATION Status: Chronic Priority: High Current Visit: No (6) Chronic indwelling Day catheter SNOMED Code(s): 423380419 Code(s): Z96.0 - PRESENCE OF UROGENITAL IMPLANTS Status: Acute Current Visit: Yes - Problem List Review Problem List Initiated/Reviewed/Updated: Yes - My Orders Last 24 Hours: My Active Orders 11/03/18 09:00 Enoxaparin [Lovenox] 40 mg SUBCUT DAILY Lactoperoxi/Gluc Oxid/Pot Thio [Biotene Oralbalance Gel] 0 gm MUCMEM QID Magnesium Oxide 400 mg PO BID Pantoprazole [ProTONIX] 40 mg PO DAILY buPROPion [Wellbutrin XL] 150 mg PO DAILY 11/03/18 12:00 Levofloxacin/Dextrose 5%-Water [Levaquin in D5W 750 MG/150 ML] 750 mg Premix Bag 1 bag IV Q24H 11/03/18 21:00 Melatonin 3 mg PO BEDTIME Remove Patch 1 ea TRDERM Q72H fentaNYL [Duragesic] 100 mcg TRDERM Q72H 11/04/18 09:00 Lidocaine 4% [Aspercreme 4%] 1 each TOP Q24H Venlafaxine [Effexor] 75 mg PO BID 11/04/18 19:00 Remove Patch 1 ea TRDERM DAILY@1900 Remove Patch 1 ea TRDERM Q24H 11/04/18 21:00 Primidone [Mysoline] 25 mg PO BEDTIME - Plan Plan:: Pneumonia with hypoxia * Sputum culture growing gm + cocci, likely Staph Aureus. * decreased fever overnight. Tmax 100.6 * CXR demonstrates LLL pneumonia * Continue triple antibiotic therapy * Decrease in WBC, but CRP continues to climb. * Respiratory therapy to eval and treat. * Albuterol nebs as needed * FiO2 to keep oximetry between 90 and 95%. Bacteriuria with possible UTI secondary to chronic indwelling catheter secondary to neurogenic bladder * gm - rods in urine culture * UA was positive for white blood cells, nitrites, and bacteria. * Patient has a chronic indwelling catheter so it is difficult to an no issues currently labs demonstrate active infection or just colonization. Patient was feverish but it appears that this may be coming from his lungs. Fortunately Levaquin will cover both his pneumonia and UTI. * Urine Culture was obtained in the ER Quadriplegia with chronic pain * Continue home pain medications. * Good bowel care. Hypomagnesemia * Normalized Continue close monitoring of vitals, respiratory status, and labs. Order influenza and respiratory panel. Chronic medical problems include recurrent pneumonia, ischemic heart disease, insomnia, chronic constipation, depression, spasticity, polypharmacy, GERD, history of MRSA. VT prophylaxis with Lovenox 40 mg CODE STATUS: Full code PCP: Doyle Galdamez M.D. I expect 3-4 days inpatient.
[2018-11-04] MEDS: Levofloxacin/Dextrose 5%-Water 750 MG in Premix Bag 1 BAG IV SCH (11:12)
[2018-11-04] MEDS ORDERED: Vancomycin 1.75 GM in Sodium Chloride 0.9% 500 ML IV SCH (18:00)
[2018-11-04] MEDS: Primidone 50 MG Tab PO SCH (20:55)
[2018-11-04] MEDS: Melatonin 3 MG Tab PO SCH (20:55)
[2018-11-05] MEDS: Albuterol/Ipratropium 3.0-0.5 MG/3 ML Neb Soln INH SCH ×4 (00:23→17:37)
[2018-11-05] MEDS: Budesonide 0.5 MG/2 ML Neb Susp NEB SCH ×2 (06:14→20:27)
[2018-11-05] MEDS: Acetaminophen/HYDROcodone 325-10 MG Tab PO SCH ×2 (08:33→20:35)
[2018-11-05] MEDS: guaiFENesin 600 MG Tab.ER PO SCH ×2 (08:34→20:33)
[2018-11-05] MEDS: Magnesium Oxide 400 MG Tab PO SCH ×2 (08:34→20:37)
[2018-11-05] MEDS: tiZANidine 4 MG Tab PO SCH ×3 (08:35→20:34)
[2018-11-05] MEDS: Baclofen 10 MG Tab PO SCH ×3 (08:36→20:29)
[2018-11-05] MEDS: Polyethylene Glycol 3350 Powder 17 GM Packet PO SCH ×2 (08:37→20:37)
[2018-11-05] MEDS: Simethicone 80 MG Tab.Chew PO SCH ×3 (08:37→20:31)
[2018-11-05] MEDS: Enoxaparin 40 MG/0.4 ML Syringe SUBCUT SCH (08:37)
[2018-11-05] MEDS: Gabapentin 600 MG Tab PO SCH ×3 (08:37→20:35)
[2018-11-05] MEDS: Lactulose Soln 10 GM/15 ML 30 ML UD Cup PO SCH ×2 (08:38→20:38)
[2018-11-05] MEDS: Lidocaine 4% 1 each Patch TOP SCH (08:38)
[2018-11-05] MEDS: buPROPion 150 MG Tab.ER PO SCH (08:38)
[2018-11-05] MEDS: Lactoperoxi/Gluc Oxid/Pot Thio 42 GM Tube MUCMEM SCH ×4 (08:39→20:38)
[2018-11-05] MEDS: Lubiprostone 24 MCG Cap PO SCH ×2 (08:40→20:30)
[2018-11-05] MEDS: Venlafaxine 37.5 MG Tab PO SCH ×2 (08:41→20:30)
[2018-11-05] MEDS: Pantoprazole 40 MG Tab.CR PO SCH (08:42)
[2018-11-05] MEDS: Calcium Polycarbophil 625 MG Tab PO SCH ×2 (08:47→20:29)
--- NOTE | 2018-11-05 10:20 | PCM.PN ---
- General Info Date of Service: 11/05/18 Admission Dx/Problem (Free Text): Admission Diagnosis/Problem Admission Diagnosis/Problem Pneumonia Subjective Update: November 05, 2018 Patient has no complaints this morning. 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 Culture results returned: Sputum - MSSA sensitive to Levoquin; urine - E. coli also sensitive to Levaquin. He is still requiring 1L NC. Nursing concerned about abdominal distention. He has a rectal tube in place. He has a history of colonic pseudo obstruction. November 04, 2018 Patient had an uneventful night. Tmax was 100.6. He continues on 3 antibiotics awaiting culture results of sputum and urine. Influenza and viral respiratory panel negative. Bowel care provided with adequate results. November 03, 2018 Patient denies any cough or shortness of breath. He does complain of a fever. Patient had multiple temperatures over 101 last night. He did get started on cefepime 2 g every 12 hours and vancomycin with the Levaquin. He did have some liquid stool yesterday per patient. His appetite is good. He had a 9 pound weight gain overnight and some increased wheezing per nursing. Functional Status: Reports: Pain Controlled - Review of Systems General: Reports: Fever HEENT: Reports: No Symptoms Pulmonary: Reports: No Symptoms. Denies: Shortness of Breath, Cough Cardiovascular: Reports: No Symptoms. Denies: Chest Pain, Dyspnea on Exertion Gastrointestinal: Reports: No Symptoms Genitourinary: Reports: No Symptoms Musculoskeletal: Reports: No Symptoms Skin: Reports: No Symptoms - Patient Data Vitals - Most Recent: Last Vital Signs Temp 100.8 F H 11/05/18 08:36 Pulse 84 11/05/18 08:36 Resp 16 11/05/18 08:36 BP 117/76 11/05/18 08:36 Pulse Ox 93 L 11/05/18 08:36 Weight - Most Recent: 226 lb 6.4 oz I&O - Last 24 Hours: Intake & Output 11/04/18 11/05/18 11/05/18 22:59 06:59 14:59 Intake Total 470 720 Output Total 400 750 Balance 70 -30 Lab Results Last 24 Hours: Laboratory Results - last 24 hr 11/05/18 11/05/18 Range/Units 06:14 06:14 WBC 7.90 (4.23-9.07) K/mm3 RBC 4.11 L (4.63-6.08) M/mm3 Hgb 11.5 L (13.7-17.5) gm/L Hct 34.6 L (40.1-51.0) % MCV 84.2 (79.0-92.2) fl MCH 28.0 (25.7-32.2) pg MCHC 33.2 (32.2-35.5) g/dl RDW Std Deviation 44.9 H (35.1-43.9) fL Plt Count 181 (163-337) K/mm3 MPV 11.0 (9.4-12.3) fl Neut % (Auto) 69.4 H (34.0-67.9) % Lymph % (Auto) 12.4 L (21.8-53.1) % Placer % (Auto) 12.2 (5.3-12.2) % Eos % (Auto) 5.4 (0.8-7.0) Baso % (Auto) 0.3 (0.1-1.2) % Neut # (Auto) 5.49 H (1.78-5.38) K/mm3 Lymph # (Auto) 0.98 L (1.32-3.57) K/mm3 Placer # (Auto) 0.96 H (0.30-0.82) K/mm3 Eos # (Auto) 0.43 (0.04-0.54) K/mm3 Baso # (Auto) 0.02 (0.01-0.08) K/mm3 Sodium 133 L (136-145) mEq/L Potassium 3.6 (3.5-5.1) mEq/L Chloride 100 (98-107) mEq/L Carbon Dioxide 24 (21-32) mEq/L Anion Gap 12.6 (5-15) BUN 8 (7-18) mg/dL Creatinine 0.7 (0.7-1.3) mg/dL Est Cr Clr Drug Dosing 143.58 mL/min Estimated GFR (MDRD) > 60 (>60) mL/min BUN/Creatinine Ratio 11.4 L (14-18) Glucose 123 H (74-106) mg/dL Calcium 8.3 L (8.5-10.1) mg/dL Magnesium 2.0 (1.8-2.4) mg/dl Total Bilirubin 0.4 (0.2-1.0) mg/dL AST 38 H (15-37) U/L ALT 48 (16-63) U/L Alkaline Phosphatase 154 H (46-116) U/L C-Reactive Protein 22.3 H* (<1.0) mg/dL Total Protein 6.5 (6.4-8.2) g/dl Albumin 2.8 L (3.4-5.0) g/dl Globulin 3.7 gm/dL Albumin/Globulin Ratio 0.8 L (1-2) Domingo Results Last 24 Hours: Microbiology 11/02/18 08:35 Aerobic Blood Culture - Preliminary Blood - Venous - Lab Draw NO GROWTH AFTER 3 DAYS Anaerobic Blood Culture - Preliminary NO GROWTH AFTER 3 DAYS 11/02/18 08:15 Aerobic Blood Culture - Preliminary Blood - Venous NO GROWTH AFTER 3 DAYS Anaerobic Blood Culture - Preliminary NO GROWTH AFTER 3 DAYS 11/02/18 07:45 Gram Stain - Final Sputum - Expectorated Sputum Culture - Final Staphylococcus Aureus 11/02/18 08:00 Urine Culture - Preliminary Urine, Day Cath (Indwelling) Escherichia Coli 11/02/18 10:45 Catheter Tip Culture - Preliminary Catheter Tip Other - Day Catheter Gram Negative Rods Med Orders - Current: Current Medications Acetaminophen (Tylenol) 650 mg PO Q4H PRN PRN Reason: Fever Last Admin: 11/03/18 04:37 Dose: 650 mg Hydrocodone Bitart/Acetaminophen ([place] 325-10 Mg) 1 tab PO BID [facility] Last Admin: 11/05/18 08:33 Dose: 1 tab Albuterol (Proventil Neb Soln) 2.5 mg NEB Q2H PRN PRN Reason: Shortness Of Breath/wheezing Albuterol/Ipratropium (Duoneb 3.0-0.5 Mg/3 Ml) 3 ml INH Q6H [facility] Last Admin: 11/05/18 06:14 Dose: 3 ml Baclofen (Lioresal) 30 mg PO TID [facility] Last Admin: 11/05/18 08:36 Dose: 30 mg Bisacodyl (Dulcolax) 5 mg PO DAILY PRN PRN Reason: Constipation Bisacodyl (Dulcolax) 10 mg RECTAL DAILY PRN PRN Reason: Constipation Budesonide (Pulmicort) 0.5 mg NEB BIDRT [facility] Last Admin: 11/05/18 06:14 Dose: 0.5 mg Bupropion HCl (Wellbutrin Xl) 150 mg PO DAILY [facility] Last Admin: 11/05/18 08:38 Dose: 150 mg Calcium Polycarbophil (Fibercon) 625 mg PO BID [facility] Last Admin: 11/05/18 08:47 Dose: 625 mg Enoxaparin Sodium (Lovenox) 40 mg SUBCUT DAILY [facility] Last Admin: 11/05/18 08:37 Dose: 40 mg Fentanyl (Duragesic) 100 mcg TRDERM Q72H [facility] Last Admin: 11/03/18 22:36 Dose: 100 mcg Gabapentin (Neurontin) 600 mg PO TID [facility] Last Admin: 11/05/18 08:37 Dose: 600 mg Glucose Oxid/Lactoperoxid/Muramidas (Biotene Oralbalance Gel) 0 gm MUCMEM QID [facility] Last Admin: 11/05/18 08:39 Dose: Not Given Guaifenesin (Mucinex) 1,200 mg PO BID [facility] Last Admin: 11/05/18 08:34 Dose: 1,200 mg Levofloxacin/Dextrose 750 mg/ (Premix) 150 mls @ 100 mls/hr IV Q24H [facility] Last Admin: 11/04/18 11:12 Dose: 100 mls/hr Ibuprofen (Motrin) 600 mg PO Q6H PRN PRN Reason: Fever Last Admin: 11/04/18 00:11 Dose: 600 mg Lactulose (Cephulac) 20 gm PO BID [facility] Last Admin: 11/05/18 08:38 Dose: 20 gm Lidocaine (Aspercreme 4%) 1 each TOP Q24H [facility] Last Admin: 11/05/18 08:38 Dose: 1 each Lidocaine HCl (Xylocaine 2% Jelly) 5 ml TOP BEDTIME PRN PRN Reason: Constipation Lubiprostone (Amitiza) 24 mcg PO BID [facility] Last Admin: 11/05/18 08:40 Dose: 24 mcg Magnesium Citrate (Citrate Of Magnesia) 296 ml PO ASDIRECTED PRN PRN Reason: Constipation Magnesium Hydroxide (Milk Of Magnesia) 30 ml PO Q12H PRN PRN Reason: Constipation Magnesium Oxide (Magnesium Oxide) 400 mg PO BID [facility] Last Admin: 11/05/18 08:34 Dose: 400 mg Melatonin (Melatonin) 3 mg PO BEDTIME [facility] Last Admin: 11/04/18 20:55 Dose: 3 mg Miscellaneous Information (Remove Patch) 1 ea TRDERM Q72H [facility] Last Admin: 11/03/18 22:35 Dose: 1 ea Miscellaneous Information (Remove Patch) 1 ea TRDERM Q24H [facility] Last Admin: 11/04/18 18:00 Dose: 1 ea Ondansetron HCl (Zofran Odt) 4 mg PO Q6H PRN PRN Reason: nausea, able to take PO Pantoprazole Sodium (Protonix) 40 mg PO DAILY [facility] Last Admin: 11/05/18 08:42 Dose: 40 mg Polyethylene Glycol (Miralax) 17 gm PO DAILY PRN PRN Reason: Constipation Polyethylene Glycol (Miralax) 17 gm PO BID [facility] Last Admin: 11/05/18 08:37 Dose: 17 gm Primidone (Mysoline) 25 mg PO BEDTIME [facility] Last Admin: 11/04/18 20:55 Dose: 25 mg Senna/Docusate Sodium (Senna Plus) 1 tab PO BID PRN PRN Reason: Constipation Last Admin: 11/03/18 08:43 Dose: 1 tab Senna/Docusate Sodium (Senna Plus) 2 tab PO BID [facility] Last Admin: 11/05/18 08:36 Dose: 2 tab Simethicone (Simethicone) 80 mg PO TID [facility] Last Admin: 11/05/18 08:37 Dose: 80 mg Sodium Chloride (Saline Flush) 10 ml FLUSH ASDIRECTED PRN PRN Reason: Keep Vein Open Tizanidine HCl (Zanaflex) 6 mg PO TID [facility] Last Admin: 11/05/18 08:35 Dose: 6 mg Venlafaxine HCl (Effexor) 75 mg PO BID [facility] Last Admin: 11/05/18 08:41 Dose: 75 mg Discontinued Medications Dextrose/Sodium Chloride (Dextrose 5%-Normal Saline) 1,000 mls @ 150 mls/hr IV ASDIRECTED [facility] Last Admin: 11/03/18 05:24 Dose: 150 mls/hr Levofloxacin/Dextrose 750 mg/ (Premix) 150 mls @ 100 mls/hr IV ONETIME ONE Stop: 11/02/18 09:27 Last Admin: 11/02/18 08:40 Dose: 100 mls/hr Cefepime HCl 2 gm/ Premix 50 mls @ 100 mls/hr IV Q12H [facility] Last Admin: 11/04/18 04:46 Dose: 100 mls/hr Vancomycin HCl 1 gm/Vancomycin HCl 500 mg/ Sodium Chloride 500 mls @ 333.025 mls/hr IV Q12H [facility] Vancomycin HCl 1 gm/Vancomycin HCl 500 mg/ Sodium Chloride 500 mls @ 250 mls/ hr IV Q12H [facility] Last Admin: 11/04/18 06:56 Dose: 250 mls/hr Magnesium Sulfate 2 gm/ Premix 50 mls @ 25 mls/hr IV ONETIME ONE Stop: 11/03/18 10:33 Last Admin: 11/03/18 10:19 Dose: 25 mls/hr Vancomycin HCl 1.75 gm/ Sodium (Chloride) 500 mls @ 250 mls/hr IV Q12H [facility] Ibuprofen (Motrin) 600 mg PO ONETIME ONE Stop: 11/02/18 07:59 Last Admin: 11/02/18 09:02 Dose: 600 mg Lidocaine (Lidoderm 5%) 700 mg TOP BID [facility] Lidocaine (Lidoderm 5%) 700 mg TOP DAILY@0600 [facility] Last Admin: 11/04/18 07:05 Dose: Not Given Miscellaneous Information (Remove Patch) 1 ea TRDERM DAILY@1900 [facility] Last Admin: 11/03/18 19:00 Dose: 1 ea Miscellaneous Information (Remove Patch) 1 ea TRDERM DAILY@1900 [facility] Primidone (Mysoline) 50 mg PO BEDTIME [facility] Last Admin: 11/03/18 22:33 Dose: 50 mg Vancomycin HCl (Pharmacy To Dose - Vancomycin) 0 dose .XX ASDIRECTED PRN PRN Reason: RX TO DOSE VANCOMYCIN Venlafaxine HCl (Effexor Xr) 75 mg PO BID [facility] Last Admin: 11/03/18 22:33 Dose: 75 mg - Exam Quality Assessment: Supplemental Oxygen General: Alert, Oriented HEENT: Pupils Equal, Pupils Reactive Neck: Supple Lungs: Clear to Auscultation, Normal Respiratory Effort Cardiovascular: Regular Rate, Regular Rhythm GI/Abdominal Exam: Normal Bowel Sounds, Soft, Non-Tender, Distended (slightly more distented than yesterday) Back Exam: Normal Inspection, Full Range of Motion Extremities: Normal Inspection, Normal Range of Motion, No Pedal Edema Skin: Warm, Dry, Intact Psy/Mental Status: Alert, Normal Affect, Normal Mood - Problem List & Annotations (1) Pneumonia SNOMED Code(s): 193806525 Code(s): J18.9 - PNEUMONIA, UNSPECIFIED ORGANISM Status: Acute Current Visit: Yes Qualifiers: Pneumonia type: due to unspecified organism Laterality: right Lung location: lower lobe of lung Qualified Code(s): J18.1 - Lobar pneumonia, unspecified organism (2) Hypoxia SNOMED Code(s): 295746853 Code(s): R09.02 - HYPOXEMIA Status: Acute Current Visit: Yes (3) Quadriplegia and quadriparesis SNOMED Code(s): 18448018 Code(s): G82.50 - QUADRIPLEGIA, UNSPECIFIED Status: Acute Current Visit: Yes (4) UTI (urinary tract infection) SNOMED Code(s): 31495249 Code(s): N39.0 - URINARY TRACT INFECTION, SITE NOT SPECIFIED Status: Acute Priority: High Current Visit: No Qualifiers: Urinary tract infection type: site unspecified Hematuria presence: without hematuria Qualified Code(s): N39.0 - Urinary tract infection, site not specified (5) Chronic constipation SNOMED Code(s): 647910723 Code(s): K59.09 - OTHER CONSTIPATION Status: Chronic Priority: High Current Visit: No (6) Chronic indwelling Day catheter SNOMED Code(s): 548354963 Code(s): Z96.0 - PRESENCE OF UROGENITAL IMPLANTS Status: Acute Current Visit: Yes - Problem List Review Problem List Initiated/Reviewed/Updated: Yes - My Orders Last 24 Hours: My Active Orders 11/04/18 11:15 Rectal Tube Insertion [OM.PC] PRN 11/04/18 11:17 Rectal Tube Removal [OM.PC] PRN 11/04/18 19:00 Remove Patch 1 ea TRDERM Q24H 11/04/18 21:00 Primidone [Mysoline] 25 mg PO BEDTIME 11/05/18 11:15 Rectal Tube Insertion [OM.PC] PRN 11/05/18 11:17 Rectal Tube Removal [OM.PC] PRN 11/06/18 11:15 Rectal Tube Insertion [OM.PC] PRN 11/06/18 11:17 Rectal Tube Removal [OM.PC] PRN - Plan Plan:: Pneumonia with hypoxia * Sputum culture Staph Aureus (MSSA). * Tmax 100.6 * CXR demonstrates LLL pneumonia * Continue Levaquin and stop Vanc and cefepime * Normal WBC, and CRP down slightly. * Albuterol nebs as needed * FiO2 to keep oximetry between 90 and 95%. Bacteriuria with possible UTI secondary to chronic indwelling catheter secondary to neurogenic bladder * E. coli sensitive to Levaquin * UA was positive for white blood cells, nitrites, and bacteria. * Patient has a chronic indwelling catheter so it is difficult to an no issues currently labs demonstrate active infection or just colonization. Patient was feverish but it appears that this may be coming from his lungs. Fortunately Levaquin will cover both his pneumonia and UTI. Quadriplegia with chronic pain * Continue home pain medications. * Good bowel care. * Nursing concerned about abdominal distention so we will add simethicone. Mild Hyponatremia * Slight decrease in sodium. Now at 133. * Likely due to pneumonia (SIADH) * Continue to monitor, but not likely clinically significant. Hypomagnesemia * Normalized History of Acute Colonic Pseudo-obstruction * Patient has rectal tube in place * Will add simethicone and continue goo bowel care. Continue close monitoring of vitals, respiratory status, and labs. Order influenza and respiratory panel. Chronic medical problems include recurrent pneumonia, ischemic heart disease, insomnia, chronic constipation, depression, spasticity, polypharmacy, GERD, history of MRSA. VT prophylaxis with Lovenox 40 mg CODE STATUS: Full code PCP: Doyle Galdamez M.D. Discharge planned for tomorrow.
[2018-11-05] MEDS: Levofloxacin 750 MG Tab PO SCH (12:20)
[2018-11-05] MEDS: Primidone 50 MG Tab PO SCH (20:31)
[2018-11-05] MEDS: Melatonin 3 MG Tab PO SCH (20:35)
[2018-11-06] MEDS: Albuterol/Ipratropium 3.0-0.5 MG/3 ML Neb Soln INH SCH ×3 (00:26→11:29)
[2018-11-06] MEDS: Budesonide 0.5 MG/2 ML Neb Susp NEB SCH (06:22)
[2018-11-06] MEDS: Acetaminophen 325 MG Tab PO PRN (06:41)
[2018-11-06] MEDS: Lactoperoxi/Gluc Oxid/Pot Thio 42 GM Tube MUCMEM SCH ×2 (08:37→13:53)
[2018-11-06] MEDS: tiZANidine 4 MG Tab PO SCH ×2 (08:37→14:27)
[2018-11-06] MEDS: Polyethylene Glycol 3350 Powder 17 GM Packet PO SCH (08:37)
[2018-11-06] MEDS: Baclofen 10 MG Tab PO SCH ×2 (08:39→14:27)
[2018-11-06] MEDS: Acetaminophen/HYDROcodone 325-10 MG Tab PO SCH (08:40)
[2018-11-06] MEDS: Venlafaxine 37.5 MG Tab PO SCH (08:41)
[2018-11-06] MEDS: Magnesium Oxide 400 MG Tab PO SCH (08:41)
[2018-11-06] MEDS: guaiFENesin 600 MG Tab.ER PO SCH (08:41)
[2018-11-06] MEDS: Lactulose Soln 10 GM/15 ML 30 ML UD Cup PO SCH (08:42)
[2018-11-06] MEDS: Simethicone 80 MG Tab.Chew PO SCH ×2 (08:42→14:27)
[2018-11-06] MEDS: Calcium Polycarbophil 625 MG Tab PO SCH (08:42)
[2018-11-06] MEDS: Pantoprazole 40 MG Tab.CR PO SCH (08:42)
[2018-11-06] MEDS: buPROPion 150 MG Tab.ER PO SCH (08:42)
[2018-11-06] MEDS: Gabapentin 600 MG Tab PO SCH ×2 (08:42→14:29)
[2018-11-06] MEDS: Lubiprostone 24 MCG Cap PO SCH (08:43)
[2018-11-06] MEDS: Lidocaine 4% 1 each Patch TOP SCH (08:48)
[2018-11-06] MEDS: Enoxaparin 40 MG/0.4 ML Syringe SUBCUT SCH (08:48)
[2018-11-06] MEDS ORDERED: Potassium Chloride 20 MEQ Tab.ER PO ONE (10:33)
[2018-11-06] MEDS: Levofloxacin 750 MG Tab PO SCH (11:03)
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
[2018-11-06 15:54] VITALS: BP 113/89
== END 2018-11-06 15:40 | DRG 698 ==
LOC: SUPCPDRO 07:12 → JD.ED 07:12 → JD.MS 15:10 → OBSVTOIN 17:35
PROVIDERS: ADMIT Family Medicine; ATTEND Family Medicine
DX: T83.511A Infection and inflammatory reaction due to indwelling urethral catheter, initial encounter (principal); J18.1 Lobar pneumonia, unspecified organism; G82.50 Quadriplegia, unspecified; E22.2 Syndrome of inappropriate secretion of antidiuretic hormone; N39.0 Urinary tract infection, site not specified; B96.20 Unspecified Escherichia coli [E. coli] as the cause of diseases classified elsewhere; B95.2 Enterococcus as the cause of diseases classified elsewhere; Y84.6 Urinary catheterization as the cause of abnormal reaction of the patient, or of later complication, without mention of misadventure at the time of the procedure; E83.42 Hypomagnesemia; E87.6 Hypokalemia; N31.9 Neuromuscular dysfunction of bladder, unspecified; R09.02 Hypoxemia; I25.9 Chronic ischemic heart disease, unspecified; R32 Unspecified urinary incontinence; F32.9 Major depressive disorder, single episode, unspecified; G47.00 Insomnia, unspecified; F41.9 Anxiety disorder, unspecified; E66.9 Obesity, unspecified; R50.9 Fever, unspecified; R05 Cough; R04.2 Hemoptysis; R53.1 Weakness; R53.83 Other fatigue; R63.0 Anorexia; R53.81 Other malaise; R06.02 Shortness of breath; R06.00 Dyspnea, unspecified; R60.9 Edema, unspecified; K59.09 Other constipation; M54.9 Dorsalgia, unspecified; G89.29 Other chronic pain; H04.129 Dry eye syndrome of unspecified lacrimal gland; H54.7 Unspecified visual loss; M19.90 Unspecified osteoarthritis, unspecified site; Z68.27 Body mass index [BMI] 27.0-27.9, adult; Z87.891 Personal history of nicotine dependence; V89.2XXS Person injured in unspecified motor-vehicle accident, traffic, sequela; Z98.1 Arthrodesis status; Z79.899 Other long term (current) drug therapy; Z74.01 Bed confinement status; Z87.01 Personal history of pneumonia (recurrent); Z86.14 Personal history of Methicillin resistant Staphylococcus aureus infection
CPT/HCPCS: 36415; 71045; 80053; 81001; 83605 ×2; 83735; 83880; 85007; 85027; 85610; 85652; 85730; 86140; 87040 ×2; 87070 ×2; 87077; 87086; 87088 ×5; 87186 ×6; 87205; 93005; 96361; 96365; 96366; 99285; A9270; J0692; J1956; J7042 ×2; 51703; 80202; 84100; 85025; 87486; 87581; 87632; 87798; 87804; 94640; 94760; 94761; J1650; J3370; J3475; J7040; J7620-GY

== ENCOUNTER 2018-11-16 21:58 | Inpatient (IN) | payer MEDICAID ==
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
--- NOTE | 2018-11-17 06:18 | PCM.HP ---
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 Miscellaneous Information (Remove Patch) 1 ea TRDERM Q24H [facility] Miscellaneous Information (Remove Patch) 1 ea TRDERM Q72H [facility] Multivitamins (Thera) 1 each PO DAILY [facility] Last Admin: 11/17/18 09:59 Dose: 1 each Pantoprazole Sodium (Protonix Iv) 40 mg IVPUSH DAILY [facility] Last Admin: 11/17/18 09:49 Dose: 40 mg Methenamine Hippurate 1 Gm Ptom 0 each PO BID [facility] Last Admin: 11/17/18 10:00 Dose: Primidone (Mysoline) 25 mg PO BEDTIME [facility] Tizanidine HCl (Zanaflex) 6 mg PO TID [facility] Last Admin: 11/17/18 09:58 Dose: 6 mg Triamcinolone Acetonide (Triamcinolone Acetonide 0.1% Crm) 0 gm TOP BID PRN PRN Reason: Other Venlafaxine HCl (Effexor) 75 mg PO BID [facility] Last Admin: 11/17/18 09:59 Dose: 75 mg Assessment/Plan Comment:: Patient was seen and examined and I agree with the above plan.
[2018-11-17] MEDS ORDERED: Lidocaine 2% Jelly 5 ML Tube TOP PRN (06:36)
[2018-11-17] MEDS ORDERED: Albuterol 0.083% 2.5 MG/3 ML Neb Soln NEB PRN (06:36)
[2018-11-17] MEDS ORDERED: Pantoprazole 40 MG Tab.CR PO SCH (07:00)
[2018-11-17] MEDS ORDERED: HYDROmorphone 0.5 MG/0.5 ML Syringe IVPUSH PRN (07:01)
[2018-11-17] MEDS ORDERED: Acetaminophen 325 MG Tab PO PRN (07:01)
[2018-11-17] MEDS: Budesonide 0.5 MG/2 ML Neb Susp NEB SCH ×2 (08:24→20:53)
[2018-11-17] MEDS ORDERED: Benzocaine 20% Oral Spray 59.2 ML Canister MUCMEM PRN (08:35)
[2018-11-17] MEDS ORDERED: Triamcinolone Acetonide 0.1% Crm 15 GM Tube TOP PRN (09:00)
--- NOTE | 2018-11-17 09:24 | CR ---
Abdomen: Supine view of the abdomen was obtained. Comparison: Previous abdominal x-ray of 04/22/18. Previous lumbar spine surgery is noted. Catheter is seen within the pelvis most likely representing urinary catheter. Surgical clips are seen within the left upper abdomen. Bony structures are osteopenic. Diffuse gaseous dilatation is seen throughout the colon as well as within portions of the small bowel. Impression: 1. Diffuse gaseous dilatation of the colon as well as within loops of small bowel. Findings have the appearance of mostly colonic ileus. 2. Other incidental findings as noted above. 3. No significant change is seen from previous exam. Diagnostic code #3
[2018-11-17] MEDS ORDERED: LORazepam 2 MG/ML SDV IVPUSH ONE (09:28)
[2018-11-17] MEDS: Albuterol/Ipratropium 3.0-0.5 MG/3 ML Neb Soln INH SCH ×3 (09:29→20:53)
[2018-11-17] MEDS: Pantoprazole 40 MG Vial IVPUSH SCH (09:49)
[2018-11-17] MEDS: Lidocaine 4% 1 each Patch TOP SCH (09:53)
[2018-11-17] MEDS: fentaNYL 50 MCG/HR Transdermal Patch TRDERM SCH (09:54)
[2018-11-17] MEDS: Lactoperoxi/Gluc Oxid/Pot Thio 42 GM Tube MUCMEM SCH ×4 (09:56→21:19)
[2018-11-17] MEDS: Enoxaparin 40 MG/0.4 ML Syringe SUBCUT SCH (09:57)
[2018-11-17] MEDS: Gabapentin 600 MG Tab PO SCH ×3 (09:58→21:16)
[2018-11-17] MEDS: Magnesium Oxide 400 MG Tab PO SCH (09:58)
[2018-11-17] MEDS: buPROPion 150 MG Tab.ER PO SCH (09:58)
[2018-11-17] MEDS: tiZANidine 4 MG Tab PO SCH ×3 (09:58→21:16)
[2018-11-17] MEDS: Multivitamins,Therapeutic Tab PO SCH (09:59)
[2018-11-17] MEDS: Venlafaxine 37.5 MG Tab PO SCH ×2 (09:59→21:24)
[2018-11-17] MEDS: Baclofen 10 MG Tab PO SCH ×3 (09:59→21:18)
[2018-11-17] MEDS: METHENAMINE HIPPURATE 1 GM PO SCH ×2 (10:00→21:20)
[2018-11-17] MEDS: Lactated Ringers 1,000 ML IV SCH ×2 (12:56→21:20)
--- NOTE | 2018-11-17 13:57 | CR ---
Chest: Portable view of the chest is obtained. Comparison: Prior chest x-ray of 11/16/18. Heart has a slight left ventricular configuration. Tortuous thoracic aorta is seen. Slight areas of atelectasis superimposed upon scarring are noted within the right midlung. Minimal scarring is noted within the left midlung which is stable. Nasogastric tube is seen. Tip of the NG tube lies within the stomach. Prior cervical spine surgery is noted. Plate and screws are noted within the right clavicle. Diffuse gaseous dilatation of colon is seen which appears stable. Impression: 1. Atelectasis superimposed upon scarring. 2. Tip of nasogastric tube lies within the stomach. 3. Other findings as noted above which are felt to be stable. Diagnostic code #2
[2018-11-17] MEDS ORDERED: Melatonin 3 MG Tab PO SCH (21:00)
[2018-11-17] MEDS: Primidone 50 MG Tab PO SCH (21:16)
[2018-11-17] MEDS: Melatonin 3 MG Tab PO SCH (21:53)
--- NOTE | 2018-11-18 02:09 | CONS ---
CONSULTING PHYSICIAN: Dwayne Moore MD DATE OF CONSULTATION: 11/17/2018 REQUESTING PHYSICIAN: Dr. Barney. REASON FOR CONSULTATION: Abdominal distention. HISTORY OF PRESENT ILLNESS: The patient is a 53-year-old [facility] patient. He has a history of cervical fracture rendering him paraplegic. He has some use of the upper extremities, but he is bed bound. The patient has frequent admissions with abdominal distention. He is typically treated with rectal tube. He had a previous admission for pneumonia. He has also had an admission for Crum Lynne syndrome. Currently, complains of abdominal distention. He had some episodes of abdominal pain prior to his admission, but this has resolved. Concern was raised for tense abdomen. He got an abdominal film, which shows multiple dilated small and large bowel consistent with a significant ileus. He is on large doses of narcotics as well as benzodiazepines and of course he has immobility all contributing to potential ileus. PRIOR MEDICAL HISTORY: Cervical fracture in 2016 resulting in quadriplegia, poor vision, ischemic heart disease, history of pneumonia, chronic constipation, hernia repairs, anxiety, depression, insomnia, and obesity. PAST SURGICAL HISTORY: Includes 2 ventral hernia repairs, tonsillectomy, appendectomy, and his C4-C5 fusion for fracture. He also has a lumbar T12 and L2 fusion, open reduction and internal fixation of right clavicle. SOCIAL HISTORY: He is a former smoker. He has a 34-pack year history. He quit 3 years ago. He admits to marijuana and hashish use, but not recently. PHYSICAL EXAMINATION: GENERAL: He is a morbidly obese gentleman, who is smiling, in no obvious distress. He looks comfortable. VITAL SIGNS: Temperature 98.2, pulse 85, respirations 16, blood pressure 130/79. HEAD AND NECK: Normocephalic, atraumatic. NECK: Supple. CHEST: He has good inspiratory effort, but he has crackles at the bases bilaterally. HEART: Regular rate and rhythm. No clicks, murmurs, or rubs. ABDOMEN: Tense, distended. He has a resonant note on percussion. There is no tenderness appreciated. No abdominal hernias are present. Abdominal exam is unreliable due to his cervical injury. RECTAL: He currently has a rectal tube in place, which has liquid stool within the tubing. EXTREMITIES: No clubbing, cyanosis, or edema. NEUROLOGIC: He has some movement of the bilateral upper extremities. Sensation is preserved in all 4 extremities. He has no movement below the chest. LABORATORY DATA: No labs had been done on his admission. I have looked at his abdominal film. 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 PLAN: I think a nasogastric tube decompression would be helpful since the small bowel is also implicated on his film. Rectal tube is already in place. A colonoscopy is not indicated in this setting. The treatment for ileus is to correct the underlying cause. Certainly, that being largely contributed to by his narcotics use. He is on 100 mcg of fentanyl daily oxycodone. He is also on benzodiazepines for an antispasmodic activity. I would recommend a re- evaluation of his pain management if we have to get control of his chronic recurrent ileus. He is in no danger, however, if his clinical signs worsen, obviously an operation would be warranted if he develops peritoneal signs. GAEL /[id number]
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
[2018-11-18] MEDS: Budesonide 0.5 MG/2 ML Neb Susp NEB SCH ×2 (06:32→20:11)
[2018-11-18] MEDS: Albuterol/Ipratropium 3.0-0.5 MG/3 ML Neb Soln INH SCH ×4 (06:32→20:11)
[2018-11-18] MEDS ORDERED: Dextrose 5%-0.9% NaCl 1,000 ML IV SCH (06:45)
[2018-11-18] MEDS: Lidocaine 4% 1 each Patch TOP SCH (06:53)
[2018-11-18] MEDS: Acetaminophen/HYDROcodone 325-5 MG Tab PO PRN ×2 (06:53→20:47)
[2018-11-18] MEDS: Venlafaxine 37.5 MG Tab PO SCH ×3 (07:01→20:51)
[2018-11-18] MEDS: Lactoperoxi/Gluc Oxid/Pot Thio 42 GM Tube MUCMEM SCH (10:01)
[2018-11-18] MEDS: METHENAMINE HIPPURATE 1 GM PO SCH ×2 (10:02→20:47)
[2018-11-18] MEDS: Enoxaparin 40 MG/0.4 ML Syringe SUBCUT SCH (10:03)
[2018-11-18] MEDS: Pantoprazole 40 MG Vial IVPUSH SCH (10:03)
[2018-11-18] MEDS: Gabapentin 600 MG Tab PO SCH ×3 (10:04→20:46)
[2018-11-18] MEDS: Magnesium Oxide 400 MG Tab PO SCH (10:04)
[2018-11-18] MEDS: Multivitamins,Therapeutic Tab PO SCH (10:04)
[2018-11-18] MEDS: buPROPion 150 MG Tab.ER PO SCH (10:04)
[2018-11-18] MEDS: Baclofen 10 MG Tab PO SCH ×3 (10:04→20:45)
[2018-11-18] MEDS: tiZANidine 4 MG Tab PO SCH ×3 (10:05→20:44)
--- NOTE | 2018-11-18 10:51 | CR ---
Abdomen: Supine view of the abdomen was obtained. Comparison: Prior abdominal x-ray of 11/16/18. Gaseous dilatation noted of colon. Findings are slightly improved from previous exam. Previous lumbar spine surgery is noted. Nasogastric tube is seen with tip lying within the stomach. Surgical clips seen within the left upper abdomen. Impression: 1. Increased gas within the colon. Findings felt compatible with ileus. Findings are slightly improved from previous exam. 2. Tip of nasogastric tube within the stomach. Diagnostic code #3
--- NOTE | 2018-11-18 10:55 | CR ---
Chest: Frontal view of the chest was obtained. Comparison: Previous chest x-ray of 11/03/18. Improving appearance of the left lung base is seen from prior chest x-ray. Slight areas of scarring and atelectasis are noted. No acute parenchymal change is seen. Heart size and mediastinum are within normal limits. Previous surgery is noted with the right clavicle, cervical spine and lumbar spine. Impression: 1. Improved appearance of the left lung base from prior exam. 2. Other incidental findings. Nothing acute is seen. Diagnostic code #2
[2018-11-18] MEDS ORDERED: fentaNYL 100 MCG/HR Transdermal Patch TOP SCH (20:00)
[2018-11-18] MEDS: Primidone 50 MG Tab PO SCH (20:43)
[2018-11-18] MEDS: Melatonin 3 MG Tab PO SCH (20:51)
[2018-11-19] MEDS: Lidocaine 4% 1 each Patch TOP SCH (06:21)
[2018-11-19] MEDS: Pantoprazole 40 MG Tab.CR PO SCH (06:22)
[2018-11-19] MEDS: Albuterol/Ipratropium 3.0-0.5 MG/3 ML Neb Soln INH SCH ×4 (06:37→20:48)
[2018-11-19] MEDS: Budesonide 0.5 MG/2 ML Neb Susp NEB SCH ×2 (06:37→20:48)
[2018-11-19] MEDS ORDERED: Benzocaine/Cetylpyridinium/Menthol Lozenge MUCMEM PRN (06:38)
[2018-11-19] MEDS ORDERED: Potassium Chloride 20 MEQ Tab.ER PO ONE (07:58)
[2018-11-19] MEDS: Venlafaxine 37.5 MG Tab PO SCH ×2 (08:40→20:15)
[2018-11-19] MEDS: buPROPion 150 MG Tab.ER PO SCH (08:40)
[2018-11-19] MEDS: Enoxaparin 40 MG/0.4 ML Syringe SUBCUT SCH (08:40)
[2018-11-19] MEDS: Baclofen 10 MG Tab PO SCH ×3 (08:40→20:12)
[2018-11-19] MEDS: Multivitamins,Therapeutic Tab PO SCH (08:40)
[2018-11-19] MEDS: Magnesium Oxide 400 MG Tab PO SCH (08:40)
[2018-11-19] MEDS: Gabapentin 600 MG Tab PO SCH ×3 (08:40→20:12)
[2018-11-19] MEDS: METHENAMINE HIPPURATE 1 GM PO SCH ×2 (08:41→20:17)
[2018-11-19] MEDS: tiZANidine 4 MG Tab PO SCH ×3 (08:42→20:13)
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
[2018-11-19] MEDS: Acetaminophen/HYDROcodone 325-5 MG Tab PO PRN (13:29)
[2018-11-19] MEDS ORDERED: Magnesium Sulfate/Water 4 GM in Premix Bag 1 BAG IV ONE (15:41)
[2018-11-19] MEDS: Melatonin 3 MG Tab PO SCH (20:12)
[2018-11-19] MEDS: Primidone 50 MG Tab PO SCH (20:14)
[2018-11-20] MEDS: Acetaminophen/HYDROcodone 325-5 MG Tab PO PRN ×2 (00:27→11:01)
[2018-11-20] MEDS: Lidocaine 4% 1 each Patch TOP SCH (06:27)
[2018-11-20] MEDS: Pantoprazole 40 MG Tab.CR PO SCH (06:28)
[2018-11-20] MEDS: Budesonide 0.5 MG/2 ML Neb Susp NEB SCH (06:39)
[2018-11-20] MEDS: Albuterol/Ipratropium 3.0-0.5 MG/3 ML Neb Soln INH SCH ×2 (06:39→09:04)
[2018-11-20] MEDS: fentaNYL 50 MCG/HR Transdermal Patch TRDERM SCH (08:29)
[2018-11-20] MEDS: Enoxaparin 40 MG/0.4 ML Syringe SUBCUT SCH (08:30)
[2018-11-20] MEDS: Venlafaxine 37.5 MG Tab PO SCH (08:30)
[2018-11-20] MEDS: METHENAMINE HIPPURATE 1 GM PO SCH (08:31)
[2018-11-20] MEDS: Magnesium Oxide 400 MG Tab PO SCH (08:31)
[2018-11-20] MEDS: Baclofen 10 MG Tab PO SCH (08:31)
[2018-11-20] MEDS: tiZANidine 4 MG Tab PO SCH (08:31)
[2018-11-20] MEDS: Gabapentin 600 MG Tab PO SCH (08:31)
[2018-11-20] MEDS: Multivitamins,Therapeutic Tab PO SCH (08:31)
[2018-11-20] MEDS: buPROPion 150 MG Tab.ER PO SCH (08:31)
[2018-11-20] MEDS ORDERED: Polyethylene Glycol 3350 Powder 17 GM Packet PO ONE (10:00)
[2018-11-20 10:36] VITALS: BP 125/85
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
== END 2018-11-20 11:48 | DRG 388 ==
LOC: JD.ED 21:58 → JD.MS 11-17 02:22 → OBSVTOIN 11-17 07:55
PROVIDERS: ADMIT Family Medicine; ATTEND Family Medicine
PROC: 0D9670Z Drainage of Stomach with Drainage Device, Via Natural or Artificial Opening (ICD-10-PCS; principal; 2018-11-17)
PROC: 0D9P70Z Drainage of Rectum with Drainage Device, Via Natural or Artificial Opening (ICD-10-PCS; 2018-11-17)
DX: R14.0 Abdominal distension (gaseous) (principal); R10.9 Unspecified abdominal pain; K56.7 Ileus, unspecified; G82.50 Quadriplegia, unspecified; K59.39 Other megacolon; N31.9 Neuromuscular dysfunction of bladder, unspecified; K59.8 Other specified functional intestinal disorders; H54.7 Unspecified visual loss; H04.129 Dry eye syndrome of unspecified lacrimal gland; K59.09 Other constipation; M19.90 Unspecified osteoarthritis, unspecified site; M54.9 Dorsalgia, unspecified; G89.29 Other chronic pain; F41.9 Anxiety disorder, unspecified; F32.9 Major depressive disorder, single episode, unspecified; E66.9 Obesity, unspecified; E66.01 Morbid (severe) obesity due to excess calories; M24.541 Contracture, right hand; M24.542 Contracture, left hand; I25.9 Chronic ischemic heart disease, unspecified; G47.00 Insomnia, unspecified; F11.29 Opioid dependence with unspecified opioid-induced disorder; M62.838 Other muscle spasm; V89.2XXS Person injured in unspecified motor-vehicle accident, traffic, sequela; Z98.1 Arthrodesis status; Z79.899 Other long term (current) drug therapy; Z87.891 Personal history of nicotine dependence; Z68.27 Body mass index [BMI] 27.0-27.9, adult; Z86.14 Personal history of Methicillin resistant Staphylococcus aureus infection; Z87.01 Personal history of pneumonia (recurrent); Z96.0 Presence of urogenital implants; Z74.01 Bed confinement status
CPT/HCPCS: 36415; 51702; 71045; 71045-26; 74018; 74018-26; 80048; 80053; 81001; 82962; 83605; 83735; 85025; 86140; 87086; 87641; 94640; 94760; 94761; 97110-GO; 97110-GP; 97161-GP; 97165-GO; 99284; 99285-25; A9270-GY; C9113; J1650; J2060; J3475; J7042; J7120; J7620-GY